=== PATIENT | female | born 1995 | race Caucasian/White ===

== ENCOUNTER 2018-02-12 21:29 | Emergency (ER) | payer MEDICAID ==
--- NOTE | 2018-02-12 22:30 | EDPHYS ---
Physician Documentation [facility] Name: Diane Chávez Age: 22 yrs Sex: Female : 1995 Arrival Date: 02/12/2018 Time: 21:30 Bed 17 Private MD: ED Physician Marin Flores HPI: 02/12 22:26 This 22 yrs old Female presents to ER via Ambulatory with complaints of jr8 Finger Infection- 31 Wks Preg. 22:26 The patient or guardian reports pain, swelling. The complaints affect the medial aspect jr8 left thumb. Context: The problem was sustained at home. Onset: The symptoms/episode began/occurred gradually, 2 day(s) ago. Modifying factors: The symptoms are alleviated by nothing, the symptoms are aggravated by nothing. Associated signs and symptoms: The patient has no apparent associated signs or symptoms. Severity of symptoms: At their worst the symptoms were mild, in the emergency department the symptoms are unchanged. The patient has not experienced similar symptoms in the past. The patient has not recently seen a physician. Patient stated that she has had wart on left thumb for some time. Had accidently opened it the other day. Now has had drainage and swelling to region . 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 - Social history:: Smoking status: Patient/guardian denies using tobacco. ROS: 22:26 ENT: Negative for injury, pain, and discharge, Neck: Negative for injury, pain, and jr8 swelling, Cardiovascular: Negative for chest pain, palpitations, and edema, Respiratory: Negative for shortness of breath, cough, wheezing, and pleuritic chest pain, Abdomen/GI: Negative for abdominal pain, nausea, vomiting, diarrhea, and constipation, Back: Negative for injury and pain, MS/Extremity: Negative for injury and deformity, Neuro: Negative for headache, weakness, numbness, tingling, and seizure. 22:26 Skin: Positive for erythema, swelling, of the medial aspect left thumb . Exam: 22:26 Cardiovascular: Regular rate and rhythm with a normal S1 and S2. No gallops, murmurs, jr8 or rubs. Normal PMI, no JVD. No pulse deficits. Respiratory: Lungs have equal breath sounds bilaterally, clear to auscultation and percussion. No rales, rhonchi or wheezes noted. No increased work of breathing, no retractions or nasal flaring. MS/ Extremity: Pulses equal, no cyanosis. Neurovascular intact. Full, normal range of motion. Neuro: Awake and alert, GCS 15, oriented to person, place, time, and situation. Cranial nerves II-XII grossly intact. Motor strength 5/5 in all extremities. Sensory grossly intact. Cerebellar exam normal. Normal gait. 22:26 Skin: small hematoma noted to medial aspect left thumb. Mild erythema surrounds region. No discharge noted . Vital Signs: 22:00 BP 118 / 69; Pulse 107; Resp 16; Temp 97.3; Pulse Ox 98% on R/A; Weight 112.94 kg; aj Height 5 ft. 5 in. (165.10 cm); Pain 8/10; 22:00 Body Mass Index 41.44 (112.94 kg, 165.10 cm) aj MDM: 22:10 Patient medically screened. jr8 22:26 Data reviewed: vital signs, nurses notes, and as a result, I will discharge patient. jr8 Data interpreted: Pulse oximetry: on room air is 98 %. Interpretation: normal. Counseling: I had a detailed discussion with the patient and/or guardian regarding: the historical points, exam findings, and any diagnostic results supporting the discharge/admit diagnosis, the need for outpatient follow up, a family practitioner, to return to the emergency department if symptoms worsen or persist or if there are any questions or concerns that arise at home. Administered Medications: No medications were administered Disposition: 23:13 Co-signature as Attending Physician, Marin Flores MD. kylie Disposition: 02/12/18 22:29 Discharged to Home. Impression: Local infection of the skin and subcutaneous tissue, unspecified. - Condition is Stable. - Discharge Instructions: Abscess, Cellulitis. - Prescriptions for Keflex 500 mg Oral Capsule - take 1 capsule by ORAL route every 8 hours for 7 days; 21 capsule. - Medication Reconciliation Form, Thank You Letter, Antibiotic Education, Prescription Opioid Use form. - Follow up: Private Physician; When: 1 week; Reason: Wound Recheck, Recheck today's complaints, Continuance of care, Re-evaluation by your physician. - Problem is new. - Symptoms have improved. Signatures: Saray Cintron, RN Marin Miller MD MD pkl Chung Gamboa PA PA jr8 Pia Pascual RN RN ak1
--- NOTE | 2018-02-12 22:30 | ER ---
Nurse's Notes [facility] Name: Diane Chávez Age: 22 yrs Sex: Female : 1995 Arrival Date: 02/12/2018 Time: 21:30 Bed 17 Private MD: Diagnosis: Local infection of the skin and subcutaneous tissue, unspecified Presentation: 02/12 21:58 Presenting complaint: Patient states: Wart to left thumb that became irritated and aj infected 2 days ago. Transition of care: patient was not received from another setting of care. Onset of symptoms was February 10, 2018. Initial Sepsis Screen: Does the patient meet any 2 criteria? No. Patient's initial sepsis screen is negative. Does the patient have a suspected source of infection? No. Patient's initial sepsis screen is negative. Care prior to arrival: None. 21:58 Method Of Arrival: Ambulatory 21:58 Acuity: JAY 5 aj Triage Assessment: 22:00 General: Appears in no apparent distress. comfortable, Behavior is calm, cooperative, aj appropriate for age. Pain: Complains of pain in palmar aspect of distal phalanx of left thumb Pain currently is 8 out of 10 on a pain scale. Neuro: Level of Consciousness is awake, alert, obeys commands, Oriented to person, place, time, situation, Appropriate for age. Respiratory: Airway is patent Respiratory effort is even, unlabored, Respiratory pattern is regular, symmetrical. Derm: Skin is intact, is healthy with good turgor, Skin is pink, warm \T\ dry. normal. Musculoskeletal: Reports pain in palmar aspect of distal phalanx of left thumb. 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 - Social history:: Smoking status: Patient/guardian denies using tobacco. Screenin:14 Abuse screen: Denies threats or abuse. Denies injuries from another. Nutritional ak1 screening: No deficits noted. Tuberculosis screening: No symptoms or risk factors identified. Fall Risk None identified. Assessment: 22:22 General: Appears in no apparent distress. Behavior is calm, cooperative. Pain: ak1 Complains of pain in palmar aspect of distal phalanx of left thumb. Neuro: No deficits noted. Cardiovascular: No deficits noted. Respiratory: No deficits noted. GI: No signs and/or symptoms were reported involving the gastrointestinal system. : No signs and/or symptoms were reported regarding the genitourinary system. EENT: No signs and/or symptoms were reported regarding the EENT system. Derm: Skin is red, Skin temperature is warm Wound noted left hand and palmar aspect of distal phalanx of left thumb Wound is swollen with scab over area. 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 pt c/o pain to area. 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 pt went to [facility] at request of pt's WIND INSTRUMENT REPAIRER. Musculoskeletal: No signs and/or symptoms reported regarding the musculoskeletal system. 22:25 Reassessment: pt WIND INSTRUMENT REPAIRER Dr. Flores in [place]. ak1 Vital Signs: 22:00 BP 118 / 69; Pulse 107; Resp 16; Temp 97.3; Pulse Ox 98% on R/A; Weight 112.94 kg; aj Height 5 ft. 5 in. (165.10 cm); Pain 8/10; 22:00 Body Mass Index 41.44 (112.94 kg, 165.10 cm) aj ED Course: 21:30 Patient arrived in ED. ds1 21:59 Triage completed. aj 22:00 Arm band placed on left wrist. Patient placed in waiting room, Patient notified of wait aj time. 22:10 Chung Gamboa PA is PHCP. jr8 22:10 Marin Flores MD is Attending Physician. jr8 22:13 Pia Pascual, RN is Primary Nurse. ak1 22:15 Patient has correct armband on for positive identification. Bed in low position. Call ak1 light in reach. 22:30 No provider procedures requiring assistance completed. Patient did not have IV access ak1 during this emergency room visit. Administered Medications: No medications were administered Outcome: 22:29 Discharge ordered by . jr8 22:31 Condition: stable ak1 22:34 Discharge instructions given to patient, Instructed on discharge instructions, follow ak1 up and referral plans. no drinking with medication, no driving heavy equipment, medication usage, Demonstrated understanding of instructions, follow-up care, medications, Prescriptions given X 1. 22:34 Discharged to home ambulatory, with family. ak1 22:34 Patient left the ED. ak1 Signatures: Saray Cintron, RN RN Aileen Asencio ds1 Chung Gamboa PA PA jr8 Pia Pascual RN RN ak1
== END 2018-02-12 22:34 | disposition home or self-care (01) ==
LOC: ER 21:29
DX: L08.9 Local infection of the skin and subcutaneous tissue, unspecified (principal); Z3A.31 31 weeks gestation of pregnancy; Z88.7 Allergy status to serum and vaccine
CPT/HCPCS: 99282

== ENCOUNTER 2021-09-20 16:32 | Emergency (ER) | payer OTHER ==
--- OUTSIDE RECORDS SUMMARY | 2021-09-20 16:40 | XMS REPORT | Continuity of Care Document ---
:1995 Author Organization [facility] t Address [address] [place] [address] Care Team Providers Name Role Phone Nesbitt, E Primary Care Physician ANDREW MI Attending Clinician Unavailable Nurse, Pob Immunization Attending Clinician Unavailable Hernán Sheehan DO Attending Clinician HERNÁN SHEEHAN Attending Clinician Unavailable Justice CARMICHAEL, T Attending Clinician Unavailable Only, Db Test Attending Clinician Unavailable Ricky LI, H Attending Clinician Natalio GARCÍA Attending Clinician Unavailable Brice CACERES Attending Clinician Unavailable DOUGLAS CARVAJAL Attending Clinician Unavailable Provider, Urgent Care Attending Clinician Unavailable Dayo CARTRIDGE LOADING OPERATOR Attending Clinician GREEN Attending Clinician Unavailable Mauricio BROWN Attending Clinician Unavailable Only, Bls Test Attending Clinician Unavailable Mely LI, A Attending Clinician Hallie STRONG Attending Clinician Unavailable JESÚS ROSA Attending Clinician Unavailable Rboerto LI, L Attending Clinician Keith TARANGO, S Attending Clinician Manuela PARKER Attending Clinician Unavailable DHRUV Attending Clinician Unavailable Nicki ROJASP, C Attending Clinician Doctor Unassigned, Name Attending Clinician Unavailable Edward BENOIT Attending Clinician Unavailable Dhruv ROTHMAN Attending Clinician Andrew Mi MD Attending Clinician Only, Test Attending Clinician Unavailable Amador LI Attending Clinician 2, Lab Attending Clinician Unavailable Jennifer LI, R Attending Clinician Ultrasound Attending Clinician Unavailable Jimi LI Attending Clinician Nicolle Roberson MD Attending Clinician Pob, Lab Main Attending Clinician Unavailable Meka LI Attending Clinician Kaycee CARTRIDGE LOADING OPERATOR, N Attending Clinician HIWOT, ANDREW Admitting Clinician Unavailable Nicolle ROBERSON Admitting Clinician Unavailable Hiwot LI, Andrew Admitting Clinician Nicolle Roberson MD Admitting Clinician Meka LI Admitting Clinician Payers Payer Name Policy Type Policy Number Effective Date Expiration Date [facility] [id number] 2019 CHOICE MEDICAID 00:00:00 MEDICAID COMM [id number] 2019 HEALTH CHOICE 00:00:00 Advance Directives Directive Decision Effective Termination Comments Source Date Date Healthcare Agents on N/A Univ ersity FileNameRelationshipHealthcare [facility] Agent Medical RelationshipCommunicationJennifer Branch [facility] [phone] (Mobile) Problems Condition Condition Condition Status Onset Resolution Last Treating Co mments Source Name Details Category Date Date Treatment Clinician Date Nexplanon Nexplanon Disease Active 2020-0 Uni vers insertion insertion 7-16 ity of 00:00: [place] 00 Medical Branch Morbid Morbid Disease Active 2020-0 Univers obesity obesity 7-03 ity of 00:00: [place] [address] Medical Branch Other Other Disease Active 2020-0 Univers general general 7-03 [place] of counseling [place] and advice and advice 00 Wy dical for for Branch contracept contracept seda seda management management 39 weeks 39 weeks Disease Active 2020-0 Unive rs gestation gestation 5-19 ity of of of 00:00: [place] 00 [facility] Branch 24 weeks 24 weeks Disease Active 2020-0 Unive rs gestation gestation 2-08 ity of of of 00:00: [place] 00 Medi tamera Branch Flank pain Flank pain Disease Active U nivers 2-08 ity of 00:00: [place] 00 [facility] 20 weeks 20 weeks Disease Active Unive rs gestation gestation 1-09 ity of of of 00:00: [place] 00 [facility] 22 weeks 22 weeks Disease Active Unive rs gestation gestation 1-09 ity of of of 00:00: [place] 00 [facility] Pregestati Pregestati Disease Active Overview : Univers onal onal 07-16 Dx at 5 ity of diabetes diabetes 00:00: weeks [place] mellitus, mellitus, 00 [facility] modified modified [place] White White class B class B GDM GDM Disease Active Overview: Univer s (gestation (gestation 07-16 Dx at 5 i ty of al al 00:00: weeks [place] diabetes diabetes 00 Medica l mellitus), mellitus), Br anch class A1 class A1 Abnormal Abnormal Disease Active Unive rs maternal maternal 07-11 ity of glucose glucose 00:00: [place] tolerance, tolerance, 00 Me dical antepartum antepartum Br anch Multiparit Multiparit Disease Active U nivers y y 07-10 ity of 00:00: [address] Hx of Hx of Disease Active Univers 07-10 ity of section section 00:00: [place] complicati complicati 00 Me dical ng ng Branch Obesity Obesity Disease Active Univers affecting affecting - [place] 00[place] first 00 Medica l trimester trimester Bran ch Abnormal Abnormal Disease Active Unive rs urinalysis urinalysis 07-10 it y of 00:00: [address] Branch High risk High risk Disease Active Uni vers , , 07-10 it y of antepartum antepartum 00:[place] [facility] Branch BMI BMI Disease Active Univers 40.0-44.9, 40.0-44.9, - it y of adult adult 00:00: [place] 00 [facility] Branch Depression Depression Disease Active U nivers , , - ity of unspecifie unspecifie 00:[place] d d 00 Medical depression depression Br anch type type Liveborn Liveborn Disease Active 2018-0 Unive rs infant, of infant, of 6-21 it y of chaves chaves 00[place] , , 00 Me dical born in born in [facility] hospital by by delivery delivery Allergies, Adverse Reactions, Alerts Allergy Allergy Status Severity Reaction(s) Onset Inactive Treating Comm ents Source Name Type Date Date Clinician TETANUS DRUG Active Hives Univers AND INGREDI 3-22 ity of DIPHTHER 00:00: [place] 00 Medical TOXOIDS Topping Tetanus Propensi Active Hives Univers And ty to 3-22 ity of Diphther adverse 00:00: [place] ia reaction 00 Medical Toxoids s Branch Social History Social Habit Start Date Stop Date Quantity Comments Source ASSERTION 2019-06-24 [facility] 00:00:00 [facility] Exposure to Not sure [facility] SARS-CoV-2 (event) Medica l To[place] Alcohol intake 2021-02-25 2021-02-25 0 /d [facility] 00:00:00 00:00:00 [facility] Tobacco use and 2013-07-16 2013-07-16 Never used [facility] exposure 00:00:00 00:00:00 [facility] Sex [birth year] At [birth year] [facility] 00:00:00 00:00:00 [facility] Smoking Status Start Date Stop Date Source Never smoker [facility] Medications Ordered Filled Start Stop Current Ordering Indication Dosage Frequency Signature Comments Components Source Medication Medication Date Date Medication? Clinician (SIG) Name Name AMANDA BANSAL Yes [id number] 1{tbl} Take 1 Univers 1 mg-20 mcg 5-07 tablet by ity of (21)/75 mg 00:00: mouth [place] (7) tablet 00 daily. [facility] ANNMARIEIN Yes [id number] 1{tbl} Take 1 Univers 1 mg-20 mcg 5-07 tablet by ity of (21)/75 mg 00:00: mouth [place] (7) tablet 00 daily. [facility] LOLEONIDASIN Yes [id number] 1{tbl} Take 1 Univers 1 mg-20 mcg 5-07 tablet by ity of (21)/75 mg 00:00: mouth [place] (7) tablet 00 daily. [facility] AMANDA Yes [id number] 1{tbl} Take 1 Univers 1 mg-20 mcg 5-07 tablet by ity of (21)/75 mg 00:00: mouth [place] (7) tablet 00 daily. Medical Branch etonogestre 2020-0 2020- No 68mg Unive rs l 05-06-16 ity of (NEXPLANON) 21:30: 20:29 [place] implant 68 00 :00 Medical mg Branch etonogestre 2020-0 2020- No 68mg 68 mg, Uni vers l 05-06-16 Subdermal, ity of (NEXPLANON) 21:30: 20:29 ONCE NOW, [place] implant 68 00 :00 1 dose, Medica l mg Zaina Branch 05/06/20 at 1630, Routine
Use approved by: LICENSED WEIGHER etonogestre 2020-0 2020- No 68mg Unive rs l 05-06-16 ity of (NEXPLANON) 21:30: 20:29 [place] implant 68 00 :00 Medical mg Branch etonogestre 2020-0 2020- No 68mg 68 mg, Uni vers l 05-06-16 Subdermal, ity of (NEXPLANON) 21:30: 20:29 ONCE NOW, [place] implant 68 00 :00 1 dose, Medica l mg Zaina [place] 05/06/20 at 1630, Routine
Use approved by: LICENSED WEIGHER escitalopra 2020-0 Yes 5mg Take 5 mg U nivers m oxalate 7-03 by mouth ity of (LEXAPRO) 5 14:13: [place]. [place] mg tablet 28 Medical Branch escitalopra 2020-0 Yes 5mg Take 5 mg U nivers m oxalate 7-03 by mouth ity of (LEXAPRO) 5 14:13: daily. [place] mg tablet 28 Medical Branch escitalopra 2020-0 Yes 5mg Take 5 mg U nivers m oxalate 7-03 by mouth ity of (LEXAPRO) 5 14:13: daily. [place] mg tablet 28 Medical Branch escitalopra 2020-0 Yes 5mg Take 5 mg U nivers m oxalate 7-03 by mouth ity of (LEXAPRO) 5 14:13: daily. [place] mg tablet 28 Medical Branch escitalopra 2020-0 Yes 5mg Take 5 mg U nivers m oxalate 7-03 by mouth ity of (LEXAPRO) 5 14:13: daily. [place] mg tablet 28 Medical Branch escitalopra 2020-0 Yes 5mg Take 5 mg U nivers m oxalate 7-03 by mouth ity of (LEXAPRO) 5 14:13: daily. [place] mg tablet 28 Medical Branch escitalopra 2020-0 Yes 5mg Take 5 mg U nivers m oxalate 7-03 by mouth ity of (LEXAPRO) 5 14:13: daily. [place] mg tablet 28 Medical Branch escitalopra 2020-0 Yes 5mg Take 5 mg U nivers m oxalate 7-03 by mouth ity of (LEXAPRO) 5 14:13: daily. [place] mg tablet 28 Medical Branch escitalopra 2020-0 Yes 5mg Take 5 mg U nivers m oxalate 7-03 by mouth ity of (LEXAPRO) 5 14:13: daily. [place] mg tablet 28 Medical Branch escitalopra 2020-0 Yes 5mg Take 5 mg U nivers m oxalate 7-03 by mouth ity of (LEXAPRO) 5 14:13: daily. [place] mg tablet 28 Medical Branch escitalopra 2020-0 Yes 5mg Take 5 mg U nivers m oxalate 7-03 by mouth ity of (LEXAPRO) 5 14:13: daily. [place] mg tablet 28 Medical Branch escitalopra 2020-0 Yes 5mg Take 5 mg U nivers m oxalate 7-03 by mouth ity of (LEXAPRO) 5 14:13: daily. [place] mg tablet 28 Medical [place] escitalopra 2020-0 Yes 5mg Take 5 mg U nivers m oxalate 7-03 by mouth ity of (LEXAPRO) 5 14:13: daily. [place] mg tablet 28 Medical Branch escitalopra 2020-0 Yes 5mg Take 5 mg U nivers m oxalate 7-03 by mouth ity of (LEXAPRO) 5 14:13: daily. [place] mg tablet 28 Medical Branch escitalopra 2020-0 Yes 5mg Take 5 mg U nivers m oxalate 7-03 by mouth ity of (LEXAPRO) 5 14:13: daily. [place] mg tablet 28 Medical Branch escitalopra 2020-0 Yes 5mg Take 5 mg U nivers m oxalate 7-03 by mouth ity of (LEXAPRO) 5 09:13: daily. [place] mg tablet 28 [facility] SERTraline 2020-0 Yes [id number] 100mg Take 1 Univers (ZOLOFT) 5-29 tablet by ity of 100 mg 00:00: mouth [place] tablet 00 daily. [facility] Branch SERTraline 2020-0 Yes [id number] 100mg Take 1 Univers (ZOLOFT) 5-29 tablet by ity of 100 mg 00:00: mouth [place] tablet 00 daily. [facility] Branch SERTraline 2020-0 Yes [id number] 100mg Take 1 Univers (ZOLOFT) 5-29 tablet by ity of 100 mg 00:00: mouth [place] tablet 00 daily. [facility] Branch SERTraline 2019-0 Yes [id number] 100mg Take 1 Univers (ZOLOFT) 5-29 tablet by ity of 100 mg 00:00: mouth [place] tablet 00 daily. [facility] Branch SERTraline 2019-0 Yes [id number] 100mg Take 1 Univers (ZOLOFT) 5-29 tablet by ity of 100 mg 00:00: mouth [place] tablet 00 daily. [facility] Branch SERTraline 2019-0 Yes [id number] 100mg Take 1 Univers (ZOLOFT) 5-29 tablet by ity of 100 mg 00:00: mouth [place] tablet 00 daily. [facility] Branch SERTraline 2019-0 Yes [id number] 100mg Take 1 Univers (ZOLOFT) 5-29 tablet by ity of 100 mg 00:00: mouth [place] tablet 00 daily. [facility] SERTraline 2019-0 Yes [id number] 100mg Take 1 Univers (ZOLOFT) 5-29 tablet by ity of 100 mg 00:00: mouth [place] tablet 00 daily. [facility] SERTraline 2020-0 Yes [id number] 100mg Take 1 Univers (ZOLOFT) 5-29 tablet by ity of 100 mg 00:00: mouth [place] tablet 00 daily. [facility] Branch SERTraline 2020-0 Yes [id number] 100mg Take 1 Univers (ZOLOFT) 5-29 tablet by ity of 100 mg 00:00: mouth [place] tablet 00 daily. [facility] SERTraline 2020-0 Yes [id number] 100mg Take 1 Univers (ZOLOFT) 5-29 tablet by ity of 100 mg 00:00: mouth [place] tablet 00 daily. [facility] SERTraline 2020-0 Yes [id number] 100mg Take 1 Univers (ZOLOFT) 5-29 tablet by ity of 100 mg 00:00: mouth [place] tablet 00 daily. [facility] SERTraline 2020-0 Yes [id number] 100mg Take 1 Univers (ZOLOFT) 5-29 tablet by ity of 100 mg 00:00: mouth [place] tablet 00 daily. [facility] SERTraline 2020-0 Yes [id number] 100mg Take 1 Univers (ZOLOFT) 5-29 tablet by ity of 100 mg 00:00: mouth [place] tablet 00 daily. [facility] SERTraline 2020-0 Yes [id number] 100mg Take 1 Univers (ZOLOFT) 5-29 tablet by ity of 100 mg 00:00: mouth [place] tablet 00 daily. [facility] SERTraline 2020-0 Yes [id number] 100mg Take 1 Univers (ZOLOFT) 5-29 tablet by ity of 100 mg 00:00: mouth [place] tablet 00 daily. [facility] SERTraline 2020-0 Yes [id number] 100mg Take 1 Univers (ZOLOFT) 5-29 tablet by ity of 100 mg 00:00: mouth [place] tablet 00 daily. [facility] SERTraline 2019-0 Yes [id number] 100mg Take 1 Univers (ZOLOFT) 5-29 tablet by ity of 100 mg 00:00: mouth [place] tablet 00 daily. [facility] ibuprofen 2019-0 Yes 600mg 600 mg, Univ ers (IBU) 5-21 Oral, Q6H ity of tablet 600 01:00: ABX, First [place] mg 00 dose on [facility] 03/10/20 at 2000, Until Discontinu ed, Routine acetaminoph 2019-0 Yes 650mg 650 mg, Un hernan en 5-20 Oral, Q6H, ity of (TYLENOL) 17:00: First [place] tablet 650 00 on [facility] Medical mg 03/10/20 at Branch 1200, Until Discontinu ed, Routine medroxyPROG 2019-0 2020- No 150mg 150 mg, U nivers ESTERone 5-20 05-20 Intramuscu ity of (DEPO-PROVE 14:30: 20:04 lar, ONCE, Jolly RA) 00 :00 1 dose, Medical injection [facility] 150 mg 03/10/20 at 0930, Routine 2020-0 2020- No Take by [facility] ers vit 5-20 05-20 mouth. ity of calc,iron,f 12:53: 00:00 [place] olic 35 :00 Medical ( Branch VITAMIN ORAL) 2020- No Take by [facility] ers vit 5-20 05-20 mouth. ity of calc,iron,f 12:53: 00:00 [place] olic 35 :00 Medical ( Branch VITAMIN ORAL) HYDROcodone 2019-0 Yes 1{tbl} 1 tablet, Univers -acetaminop 5-20 Oral, ity of hen (NORCO 12:42: Q6HPRN, [place] 5) 5-325 mg 48 Starting Medi tamera tablet 1 [place] Branch tablet 03/10/20 at 0742, Until Discontinu ed, Routine, Pain (scale 7-10) acetaminoph 2020- No 650mg 650 mg, U nivers en 03-10-20 Oral, Q6H, ity of (TYLENOL) 02:00: 07:29 2 doses, [place] tablet 650 00 :00 First dose Med ical mg on [place] Branch 03/09/20 at 2100, Last dose on Sun03/10/20 at 0000, Routine ketorolac 2019- No 30mg 30 mg, [facility] rs (TORADOL) 03-10 Slow IV ity of injection 01:00: 00:59 [place], Q6H [place] 30 mg 00 :00 ABX, 4 Medical doses, Branch First dose on Sun03/09/20 at 2000, Last dose on Sun03/10/20 at 1400, Routine
landscape crew member approving Restricted medication : OBYADC docusate 2019-0 Yes [id number] 240mg Take 1 Un hernan calcium 240 5-20 capsule by it y of mg capsule 00:00: mouth [place] 00 daily as Medical needed for Branch Constipati on. ferrous 2019-0 Yes [id number] 325mg Take 1 Uni vers sulfate 325 5-20 tablet by ity of mg (65 mg 00:00: mouth 2 [place] iron) 00 (two) Medical tablet times Branch daily. ibuprofen 2019-0 Yes [id number] 600mg Take 1 U nivers 600 mg 5-20 tablet by ity of tablet 00:00: mouth [place] 00 every 6 Medical (six) Branch hours as needed (Pain). Take with food or milk. acetaminoph 2020-0 Yes [id number] 650mg Take 2 Univers en 325 mg 5-20 tablets by ity of tablet 00:00: mouth [place] 00 every 6 Medical (six) Branch hours as needed for Pain (scale 1-3) or Pain (scale 4-6). 2020-0 Yes [id number] 1{tbl} Take 1 U nivers vitamin 5-20 tablet by ity of w/FA tablet 00:00: mouth [place] 00 daily. Medical Branch docusate 2020-0 Yes [id number] 240mg Take 1 Un hernan calcium 240 5-20 capsule by it y of mg capsule 00:00: mouth [place] 00 daily as Medical needed for Branch Constipati on. ferrous 2020-0 Yes [id number] 325mg Take 1 Uni vers sulfate 325 5-20 tablet by ity of mg (65 mg 00:00: mouth 2 [place] iron) 00 (two) Medical tablet times Branch daily. ibuprofen 2020-0 Yes [id number] 600mg Take 1 U nivers 600 mg 5-20 tablet by ity of tablet 00:00: mouth [place] 00 every 6 Medical (six) Branch hours as needed (Pain). Take with food or milk. acetaminoph 2020-0 Yes [id number] 650mg Take 2 Univers en 325 mg 5-20 tablets by ity of tablet 00:00: mouth [place] 00 every 6 Medical (six) Branch hours as needed for Pain (scale 1-3) or Pain (scale 4-6). 2020-0 Yes [id number] 1{tbl} Take 1 U nivers vitamin 5-20 tablet by ity of w/FA tablet 00:00: mouth [place] 00 daily. Medical Branch docusate 2020-0 Yes [id number] 240mg Take 1 Un hernan calcium 240 5-20 capsule by it y of mg capsule 00:00: mouth [place] 00 daily as Medical needed for Branch Constipati on. ferrous 2020-0 Yes [id number] 325mg Take 1 Uni vers sulfate 325 5-20 tablet by ity of mg (65 mg 00:00: mouth 2 [place] iron) 00 (two) Medical tablet times Branch daily. ibuprofen 2020-0 Yes [id number] 600mg Take 1 U nivers 600 mg 5-20 tablet by ity of tablet 00:00: mouth [place] 00 every 6 Medical (six) Branch hours as needed (Pain). Take with food or milk. acetaminoph 2020-0 Yes [id number] 650mg Take 2 Univers en 325 mg 5-20 tablets by ity of tablet 00:00: mouth [place] 00 every 6 Medical (six) Branch hours as needed for Pain (scale 1-3) or Pain (scale 4-6). 2020-0 Yes [id number] 1{tbl} Take 1 U nivers vitamin 5-20 tablet by ity of w/FA tablet 00:00: mouth [place] 00 daily. Medical Branch docusate 2020-0 Yes [id number] 240mg Take 1 Un hernan calcium 240 5-20 capsule by it y of mg capsule 00:00: mouth [place] 00 daily as Medical needed for Branch Constipati on. ferrous 2020-0 Yes [id number] 325mg Take 1 Uni vers sulfate 325 5-20 tablet by ity of mg (65 mg 00:00: mouth 2 [place] iron) 00 (two) Medical tablet times Branch daily. ibuprofen 2020-0 Yes [id number] 600mg Take 1 U nivers 600 mg 5-20 tablet by ity of tablet 00:00: mouth [place] 00 every 6 Medical (six) Branch hours as needed (Pain). Take with food or milk. acetaminoph 2020-0 Yes [id number] 650mg Take 2 Univers en 325 mg 5-20 tablets by ity of tablet 00:00: mouth [place] 00 every 6 Medical (six) Branch hours as needed for Pain (scale 1-3) or Pain (scale 4-6). 2020-0 Yes [id number] 1{tbl} Take 1 U nivers vitamin 5-20 tablet by ity of w/FA tablet 00:00: mouth [place] 00 daily. Medical Branch docusate 2020-0 Yes [id number] 240mg Take 1 Un hernan calcium 240 5-20 capsule by it y of mg capsule 00:00: mouth once [place] 00 daily as Medical needed for Branch Constipati on. ferrous 2020-0 Yes [id number] 325mg Take 1 Uni vers sulfate 325 5-20 tablet by ity of mg (65 mg 00:00: mouth 2 [place] iron) 00 (two) Medical tablet times Branch daily. ibuprofen 2020-0 Yes [id number] 600mg Take 1 U nivers 600 mg 5-20 tablet by ity of tablet 00:00: mouth [place] 00 every 6 Medical (six) Branch hours as needed (Pain). Take with food or milk. acetaminoph 2020-0 Yes [id number] 650mg Take 2 Univers en 325 mg 5-20 tablets by ity of tablet 00:00: mouth [place] 00 every 6 Medical (six) Branch hours as needed for Pain (scale 1-3) or Pain (scale 4-6). 2020-0 Yes [id number] 1{tbl} Take 1 U nivers vitamin 5-20 tablet by ity of w/FA tablet 00:00: mouth [place] 00 daily. Medical Branch docusate 2020-0 Yes [id number] 240mg Take 1 Un hernan calcium 240 5-20 capsule by it y of mg capsule 00:00: mouth once [place] 00 daily as Medical needed for Branch Constipati on. ferrous 2020-0 Yes [id number] 325mg Take 1 Uni vers sulfate 325 5-20 tablet by ity of mg (65 mg 00:00: mouth 2 [place] iron) 00 (two) Medical tablet times Branch daily. ibuprofen 2020-0 Yes [id number] 600mg Take 1 U nivers 600 mg 5-20 tablet by ity of tablet 00:00: mouth [place] 00 every 6 Medical (six) Branch hours as needed (Pain). Take with food or milk. acetaminoph 2020-0 Yes [id number] 650mg Take 2 Univers en 325 mg 5-20 tablets by ity of tablet 00:00: mouth [place] 00 every 6 Medical (six) Branch hours as needed for Pain (scale 1-3) or Pain (scale 4-6). 2020-0 Yes [id number] 1{tbl} Take 1 U nivers vitamin 5-20 tablet by ity of w/FA tablet 00:00: mouth [place] 00 daily. Medical Branch acetaminoph 2020-0 Yes [id number] 650mg Take 2 Univers en 325 mg 5-20 tablets by ity of tablet 00:00: mouth [place] 00 every 6 Medical (six) Branch hours as needed for Pain (scale 1-3) or Pain (scale 4-6). 2020-0 Yes [id number] 1{tbl} Take 1 U nivers vitamin 5-20 tablet by ity of w/FA tablet 00:00: mouth [place] 00 daily. Medical Branch docusate 2020-0 Yes [id number] 240mg Take 1 Un hernan calcium 240 5-20 capsule by it y of mg capsule 00:00: mouth once [place] 00 daily as Medical needed for Branch Constipati on. ferrous 2020-0 Yes [id number] 325mg Take 1 Uni vers sulfate 325 5-20 tablet by ity of mg (65 mg 00:00: mouth 2 [place] iron) 00 (two) Medical tablet times Branch daily. docusate 2020-0 Yes [id number] 240mg Take 1 Un hernan calcium 240 5-20 capsule by it y of mg capsule 00:00: mouth once [place] 00 daily as Medical needed for Branch Constipati on. ibuprofen 2020-0 Yes [id number] 600mg Take 1 U nivers 600 mg 5-20 tablet by ity of tablet 00:00: mouth [place] 00 every 6 Medical (six) Branch hours as needed (Pain). Take with food or milk. ferrous 2020-0 Yes [id number] 325mg Take 1 Uni vers sulfate 325 5-20 tablet by ity of mg (65 mg 00:00: mouth 2 [place] iron) 00 (two) Medical tablet times Branch daily. ibuprofen 2020-0 Yes [id number] 600mg Take 1 U nivers 600 mg 5-20 tablet by ity of tablet 00:00: mouth [place] 00 every 6 Medical (six) Branch hours as needed (Pain). Take with food or milk. acetaminoph 2020-0 Yes [id number] 650mg Take 2 Univers en 325 mg 5-20 tablets by ity of tablet 00:00: mouth [place] 00 every 6 Medical (six) Branch hours as needed for Pain (scale 1-3) or Pain (scale 4-6). 2020-0 Yes [id number] 1{tbl} Take 1 U nivers vitamin 5-20 tablet by ity of w/FA tablet 00:00: mouth [place] 00 daily. Medical Branch docusate 2020-0 Yes [id number] 240mg Take 1 Un hernan calcium 240 5-20 capsule by it y of mg capsule 00:00: mouth once [place] 00 daily as Medical needed for Branch Constipati on. ferrous 2020-0 Yes [id number] 325mg Take 1 Uni vers sulfate 325 5-20 tablet by ity of mg (65 mg 00:00: mouth 2 [place] iron) 00 (two) Medical tablet times Branch daily. ibuprofen 2020-0 Yes [id number] 600mg Take 1 U nivers 600 mg 5-20 tablet by ity of tablet 00:00: mouth [place] 00 every 6 Medical (six) Branch hours as needed (Pain). Take with food or milk. acetaminoph 2020-0 Yes [id number] 650mg Take 2 Univers en 325 mg 5-20 tablets by ity of tablet 00:00: mouth [place] 00 every 6 Medical (six) Branch hours as needed for Pain (scale 1-3) or Pain (scale 4-6). 2020-0 Yes [id number] 1{tbl} Take 1 U nivers vitamin 5-20 tablet by ity of w/FA tablet 00:00: mouth [place] 00 daily. Medical Branch docusate 2020-0 Yes [id number] 240mg Take 1 Un hernan calcium 240 5-20 capsule by it y of mg capsule 00:00: mouth once [place] 00 daily as Medical needed for Branch Constipati on. ferrous 2020-0 Yes [id number] 325mg Take 1 Uni vers sulfate 325 5-20 tablet by ity of mg (65 mg 00:00: mouth 2 [place] iron) 00 (two) Medical tablet times Branch daily. ibuprofen 2020-0 Yes [id number] 600mg Take 1 U nivers 600 mg 5-20 tablet by ity of tablet 00:00: mouth [place] 00 every 6 Medical (six) Branch hours as needed (Pain). Take with food or milk. acetaminoph 2020-0 Yes [id number] 650mg Take 2 Univers en 325 mg 5-20 tablets by ity of tablet 00:00: mouth [place] 00 every 6 Medical (six) Branch hours as needed for Pain (scale 1-3) or Pain (scale 4-6). 2020-0 Yes [id number] 1{tbl} Take 1 U nivers vitamin 5-20 tablet by ity of w/FA tablet 00:00: mouth [place] 00 daily. Medical Branch docusate 2020-0 Yes [id number] 240mg Take 1 Un hernan calcium 240 5-20 capsule by it y of mg capsule 00:00: mouth once [place] 00 daily as Medical needed for Branch Constipati on. ferrous 2020-0 Yes [id number] 325mg Take 1 Uni vers sulfate 325 5-20 tablet by ity of mg (65 mg 00:00: mouth 2 [place] iron) 00 (two) Medical tablet times Branch daily. ibuprofen 2020-0 Yes [id number] 600mg Take 1 U nivers 600 mg 5-20 tablet by ity of tablet 00:00: mouth [place] 00 every 6 Medical (six) Branch hours as needed (Pain). Take with food or milk. acetaminoph 2020-0 Yes [id number] 650mg Take 2 [facility] en 325 mg 5-20 tablets by ity of tablet 00:00: mouth [place] 00 every 6 Medical (six) Branch hours as needed for Pain (scale 1-3) or Pain (scale 4-6). 2020-0 Yes [id number] 1{tbl} Take 1 U nivers vitamin 5-20 tablet by ity of w/FA tablet 00:00: mouth [place] 00 daily. Medical Branch docusate 2020-0 Yes [id number] 240mg Take 1 [facility]nan calcium 240 5-20 capsule by it y of mg capsule 00:00: mouth once [place] 00 daily as Medical needed for Branch Constipati on. ferrous 2020-0 Yes [id number] 325mg Take 1 [facility] vers sulfate 325 5-20 tablet by ity of mg (65 mg 00:00: mouth 2 [place] iron) 00 (two) Medical tablet times Branch daily. ibuprofen 2020-0 Yes [id number] 600mg Take 1 U nivers 600 mg 5-20 tablet by ity of tablet 00:00: mouth [place] 00 every 6 Medical (six) Branch hours as needed (Pain). Take with food or milk. acetaminoph 2020-0 Yes [id number] 650mg Take 2 [facility] en 325 mg 5-20 tablets by ity of tablet 00:00: mouth [place] 00 every 6 Medical (six) Branch hours as needed for Pain (scale 1-3) or Pain (scale 4-6). 2020-0 Yes [id number] 1{tbl} Take 1 [facility] nivers vitamin 5-20 tablet by ity of w/FA tablet 00:00: mouth [place] 00 daily. Medical Branch docusate 2020-0 Yes [id number] 240mg Take 1 [facility] her[facility] calcium 240 5-20 capsule by it y of mg capsule 00:00: mouth once [place] 00 daily as Medical needed for Branch Constipati on. ferrous 2020-0 Yes [id number] 325mg Take 1 [facility] vers sulfate 325 5-20 tablet by ity of mg (65 mg 00:00: mouth 2 [place] iron) 00 (two) Medical tablet times Branch daily. ibuprofen 2020-0 Yes [id number] 600mg Take 1 [facility] nivers 600 mg 5-20 tablet by ity of tablet 00:00: mouth [place] 00 every 6 Medical (six) Branch hours as needed (Pain). Take with food or milk. acetaminoph 2020-0 Yes [id number] 650mg Take 2 [facility] en 325 mg 5-20 tablets by ity of tablet 00:00: mouth [place] 00 every 6 Medical (six) Branch hours as needed for Pain (scale 1-3) or Pain (scale 4-6). 2020-0 Yes [id number] 1{tbl} Take 1 [facility] nivers vitamin 5-20 tablet by ity of w/FA tablet 00:00: mouth [place] 00 daily. Medical Branch docusate 2020-0 Yes [id number] 240mg Take 1 [facility] her[facility] calcium 240 5-20 capsule by it y of mg capsule 00:00: mouth once [place] 00 daily as Medical needed for Branch Constipati on. ferrous 2020-0 Yes [id number] 325mg Take 1 [facility] vers sulfate 325 5-20 tablet by ity of mg (65 mg 00:00: mouth 2 [place] iron) 00 (two) Medical tablet times Branch daily. ibuprofen 2020-0 Yes [id number] 600mg Take 1 [facility] nivers 600 mg 5-20 tablet by ity of tablet 00:00: mouth [place] 00 every 6 Medical (six) Branch hours as needed (Pain). Take with food or milk. acetaminoph 2020-0 Yes [id number] 650mg Take 2 [facility] en 325 mg 5-20 tablets by ity of tablet 00:00: mouth [place] 00 every 6 Medical (six) Branch hours as needed for Pain (scale 1-3) or Pain (scale 4-6). 2020-0 Yes [id number] 1{tbl} Take 1 [facility] nivers vitamin 5-20 tablet by ity of w/FA tablet 00:00: mouth [place] 00 daily. Medical Branch docusate 2020-0 Yes [id number] 240mg Take 1 [facility] hernan calcium 240 5-20 capsule by it y of mg capsule 00:00: mouth once [place] 00 daily as Medical needed for Branch Constipati on. ferrous 2020-0 Yes [id number] 325mg Take 1 [facility] vers sulfate 325 5-20 tablet by ity of mg (65 mg 00:00: mouth 2 [place] iron) 00 (two) Medical tablet times Branch daily. ibuprofen 2020-0 Yes [id number] 600mg Take 1 [facility] nivers 600 mg 5-20 tablet by ity of tablet 00:00: mouth [place] 00 every 6 Medical (six) Branch hours as needed (Pain). Take with food or milk. acetaminoph 2020-0 Yes [id number] 650mg Take 2 [facility] en 325 mg 5-20 tablets by ity of tablet 00:00: mouth [place] 00 every 6 Medical (six) Branch hours as needed for Pain (scale 1-3) or Pain (scale 4-6). 2020-0 Yes [id number] 1{tbl} Take 1 [facility] nivers vitamin 5-20 tablet by ity of w/FA tablet 00:00: mouth [place] 00 daily. Medical Branch docusate 2020-0 Yes [id number] 240mg Take 1 [facility] hernan calcium 240 5-20 capsule by it y of mg capsule 00:00: mouth once [place] 00 daily as Medical needed for Branch Constipati on. ferrous 2020-0 Yes [id number] 325mg Take 1 [facility] vers sulfate 325 5-20 tablet by ity of mg (65 mg 00:00: mouth 2 [place] iron) 00 (two) Medical tablet times Branch daily. ibuprofen 2020-0 Yes [id number] 600mg Take 1 [facility] nivers 600 mg 5-20 tablet by ity of tablet 00:00: mouth [place] 00 every 6 Medical (six) Branch hours as needed (Pain). Take with food or milk. acetaminoph 2020-0 Yes [id number] 650mg Take 2 [facility] en 325 mg 5-20 tablets by ity of tablet 00:00: mouth [place] 00 every 6 Medical (six) Branch hours as needed for Pain (scale 1-3) or Pain (scale 4-6). 2020-0 Yes [id number] 1{tbl} Take 1 [facility] nivers vitamin 5-20 tablet by ity of w/FA tablet 00:00: mouth [place] 00 daily. Medical Branch docusate 2020-0 Yes [id number] 240mg Take 1 [facility] hernan calcium 240 5-20 capsule by it y of mg capsule 00:00: mouth once [place] 00 daily as Medical needed for Branch Constipati on. ferrous 2020-0 Yes [id number] 325mg Take 1 [facility] vers sulfate 325 5-20 tablet by ity of mg (65 mg 00:00: mouth 2 [place] iron) 00 (two) Medical tablet times Branch daily. ibuprofen 2020-0 Yes [id number] 600mg Take 1 [facility] nivers 600 mg 5-20 tablet by ity of tablet 00:00: mouth [place] 00 every 6 Medical (six) Branch hours as needed (Pain). Take with food or milk. acetaminoph 2020-0 Yes [id number] 650mg Take 2 [facility] en 325 mg 5-20 tablets by ity of tablet 00:00: mouth [place] 00 every 6 Medical (six) Branch hours as needed for Pain (scale 1-3) or Pain (scale 4-6). 2020-0 Yes [id number] 1{tbl} Take 1 U nivers vitamin 5-20 tablet by ity of w/FA tablet 00:00: mouth [place] 00 daily. Medical Branch docusate 2020-0 Yes [id number] 240mg Take 1 [facility] hernan calcium 240 5-20 capsule by it y of mg capsule 00:00: mouth once [place] 00 daily as Medical needed for Branch Constipati on. ferrous 2020-0 Yes [id number] 325mg Take 1 [facility] vers sulfate 325 5-20 tablet by ity of mg (65 mg 00:00: mouth 2 [place] iron) 00 (two) Medical tablet times Branch daily. ibuprofen 2020-0 Yes [id number] 600mg Take 1 [facility] nivers 600 mg 5-20 tablet by ity of tablet 00:00: mouth [place] 00 every 6 Medical (six) Branch hours as needed (Pain). Take with food or milk. acetaminoph 2020-0 Yes [id number] 650mg Take 2 [facility] en 325 mg 5-20 tablets by ity of tablet 00:00: mouth [place] 00 every 6 Medical (six) Branch hours as needed for Pain (scale 1-3) or Pain (scale 4-6). 2020-0 Yes [id number] 1{tbl} Take 1 U nivers vitamin 5-20 tablet by ity of w/FA tablet 00:00: mouth [place] 00 daily. Medical Branch docusate 2020-0 Yes [id number] 240mg Take 1 [facility] hernan calcium 240 5-20 capsule by it y of mg capsule 00:00: mouth once [place] 00 daily as Medical needed for Branch Constipati on. ferrous 2020-0 Yes [id number] 325mg Take 1 Uni vers sulfate 325 5-20 tablet by ity of mg (65 mg 00:00: mouth 2 [place] iron) 00 (two) Medical tablet times Branch daily. ibuprofen 2020-0 Yes [id number] 600mg Take 1 U nivers 600 mg 5-20 tablet by ity of tablet 00:00: mouth [place] 00 every 6 Medical (six) Branch hours as needed (Pain). Take with food or milk. acetaminoph 2020-0 Yes [id number] 650mg Take 2 [facility] en 325 mg 5-20 tablets by ity of tablet 00:00: mouth [place] 00 every 6 Medical (six) Branch hours as needed for Pain (scale 1-3) or Pain (scale 4-6). 2020-0 Yes [id number] 1{tbl} Take 1 U nivers vitamin 5-20 tablet by ity of w/FA tablet 00:00: mouth [place] 00 daily. Medical Branch docusate 2020-0 Yes [id number] 240mg Take 1 Un hern[facility] calcium 240 5-20 capsule by it y of mg capsule 00:00: mouth once [place] 00 daily as Medical needed for Branch Constipati on. ferrous 2020-0 Yes [id number] 325mg Take 1 Uni vers sulfate 325 5-20 tablet by ity of mg (65 mg 00:00: mouth 2 [place] iron) 00 (two) Medical tablet times Branch daily. ibuprofen 2020-0 Yes [id number] 600mg Take 1 U nivers 600 mg 5-20 tablet by ity of tablet 00:00: mouth [place] 00 every 6 Medical (six) Branch hours as needed (Pain). Take with food or milk. acetaminoph 2020-0 Yes [id number] 650mg Take 2 [facility] en 325 mg 5-20 tablets by ity of tablet 00:00: mouth [place] 00 every 6 Medical (six) Branch hours as needed for Pain (scale 1-3) or Pain (scale 4-6). 2020-0 Yes [id number] 1{tbl} Take 1 U nivers vitamin 5-20 tablet by ity of w/FA tablet 00:00: mouth [place] 00 daily. Medical Branch docusate 2020-0 Yes [id number] 240mg Take 1 Un hernan calcium 240 5-20 capsule by it y of mg capsule 00:00: mouth once [place] 00 daily as Medical needed for Branch Constipati on. ferrous 2020-0 Yes [id number] 325mg Take 1 Uni vers sulfate 325 5-20 tablet by ity of mg (65 mg 00:00: mouth 2 [place] iron) 00 (two) Medical tablet times Branch daily. ibuprofen 2020-0 Yes [id number] 600mg Take 1 U nivers 600 mg 5-20 tablet by ity of tablet 00:00: mouth [place] 00 every 6 Medical (six) Branch hours as needed (Pain). Take with food or milk. acetaminoph 2020-0 Yes [id number] 650mg Take 2 [facility] en 325 mg 5-20 tablets by ity of tablet 00:00: mouth [place] 00 every 6 Medical (six) Branch hours as needed for Pain (scale 1-3) or Pain (scale 4-6). 2020-0 Yes [id number] 1{tbl} Take 1 U nivers vitamin 5-20 tablet by ity of w/FA tablet 00:00: mouth [place] 00 daily. Medical Branch docusate 2020-0 Yes [id number] 240mg Take 1 Un hernan calcium 240 5-20 capsule by it y of mg capsule 00:00: mouth once [place] 00 daily as Medical needed for Branch Constipati on. ferrous 2020-0 Yes [id number] 325mg Take 1 Uni vers sulfate 325 5-20 tablet by ity of mg (65 mg 00:00: mouth 2 [place] iron) 00 (two) Medical tablet times Branch daily. ibuprofen 2020-0 Yes [id number] 600mg Take 1 U nivers 600 mg 5-20 tablet by ity of tablet 00:00: mouth [place] 00 every 6 Medical (six) Branch hours as needed (Pain). Take with food or milk. acetaminoph 2020-0 Yes [id number] 650mg Take 2 [facility] en 325 mg 5-20 tablets by ity of tablet 00:00: mouth [place] 00 every 6 Medical (six) Branch hours as needed for Pain (scale 1-3) or Pain (scale 4-6). 2020-0 Yes [id number] 1{tbl} Take 1 U nivers vitamin 5-20 tablet by ity of w/FA tablet 00:00: mouth [place] 00 daily. Medical Branch gabapentin 2020-0 2020- No [id number] 300mg Take 1 [facility] 300 mg 5-20 05-26 capsule by ity of capsule 00:00: 04:59 mouth 3 [place] 00 :00 (three) Medical times Branch daily for 5 days. gabapentin 2020-0 2020- No [id number] 300mg Take 1 [facility] 300 mg 5-20 05-26 capsule by ity of capsule 00:00: 04:59 mouth 3 [place] 00 :00 (three) Medical times Topping daily for 5 days. gabapentin 2020-0 2020- No [id number] 300mg Take 1 [facility] 300 mg 5-20 - capsule by ity of capsule 00:00: 04:59 mouth 3 [place] 00 :00 (three) [facility] times Topping daily for 5 days. gabapentin 2020-0 2020- No [id number] 300mg Take 1 [facility] 300 mg 5-20 - capsule by ity of capsule 00:00: 04:59 mouth 3 [place] 00 :00 (three) [facility] times Topping daily for 5 days. acetaminoph 2019-0 2020- No 1000mg 1,000 mg, Univers en ADULT -09 03- IV ity of (OFIRMEV) 20:15: 20:47 Infusion, [place] injection 00 :00 Administer Medi tamera 1,000 mg over 15 Branch Minutes, ONCE, 1 dose, [facility] 03/09/20 at 1515, Routine
Indica tion: Perioperat seda Patient gabapentin 2019-0 Yes 300mg 300 mg, Uni vers (NEURONTIN) 03-09 Oral, TID, it y of capsule 300 19:00: First dose [place] mg 00 on [facility] 03/09/20 at Branch 1400, Until Discontinu ed, Routine rho(D) 2019-0 Yes 300ug 300 mcg, Univer s immune 03-09 Intramuscu ity of globulin 16:36: lar, ONCE, [place] (RHOGAM) 01 For 1 Medical syringe 300 dose, Branch mcg Conditiona l, Routine diphenhydrA 2020-0 Yes 25mg 25 mg, Univ ers MINE - Oral, ity of (BENADRYL) 16:35: Q6HPRN, [place] tablet 25 55 Starting Medica l mg [facility] 03/09/20 at 1135, Until Discontinu ed, Routine, Sleep, Itching ondansetron 2020-0 Yes 4mg 4 mg, Slow Univers (ZOFRAN - IV Push, ity of (PF)) 16:35: Q8HPRN, [place] injection 4 55 Starting Medi tamera mg [facility] 03/09/20 at 1135, Until Discontinu ed, Routine, Nausea and Vomiting (N/V) bisacodyL 2019-0 Yes 10mg 10 mg, Univer s (DULCOLAX) 5- Rectal, ity of suppository 16:35: QDAILYPRN, [place] 10 mg 55 Starting Medical [facility] Branch 03/09/20 at 1135, Until Discontinu ed, Routine, Constipati on simethicone 2020-0 Yes 160mg 160 mg, Un hernan (GAS RELIEF 03-09 Oral, ity of (SIMETHICON 16:35: PC+HSPRN, [place] E)) 55 Starting Medical chewable [facility] tablet 160 03/09/20 at mg 1135, Until Discontinu ed, Routine, Gas docusate 2020-0 Yes 240mg 240 mg, Unive rs calcium 03-09 Oral, ity of (SURFAK) 16:35: QDAILYPRN, [place] capsule 240 55 Starting Medi tamera mg [facility] Branch 03/09/20 at 1135, Until Discontinu ed, Routine, Constipati on magnesium 2019-0 Yes 30mL 30 mL, Univer s hydroxide 03-09 Oral, ity of (MILK OF 16:35: QDAILYPRN, [place] MAGNESIA) 55 Starting Medica l 400 mg/5 mL [facility] suspension 03/09/20 at 30 mL 1135, Until Discontinu ed, Routine, Constipati on mupirocin 2019-0 Yes Intra-op Univ ers (BACTROBAN 03-09 ity of OINT) 2 % 14:42: [place] skin 00 Medical ointment Branch diphenhydrA 2020- No 25mg 25 mg, Uni vers MINE 03-09 Slow IV ity of (BENADRYL) 14:10: 23:55 Push, [place] injection 46 :37 Q4HPRN, Medical 25 mg Starting Branch [facility] 03/09/20 at 0910, Until 03/10/20 at 1855, Routine, Itching nalbuphine 2019-0 Yes 5mg 5 mg, Univer s (NUBAIN) 03-09 Intravenou ity o f injection 5 14:09: s, PRN, 1 [place] mg 35 dose, Medical Starting Branch [facility] 03/09/20 at 0909, Until Discontinu ed, Routine, Itching naloxone 0 2020- No .4mg 0.4 mg, Unive rs (NARCAN) 03-09 Slow IV ity of injection 14:09: 23:14 Push, PRN [place] 0.4 mg 35 :19 - SEE Medical INSTRUCTIO Branch NS, Starting 03/09/20 at 0909, Until [place] 03/11/20 at 1814, Routine, Analgesia Recovery sodium 2019-0 Yes PRN, Univers chloride 03-09 Starting ity of 0.9 % 14:00: Tue [place] irrigation 00 03/09/20 at Med ical solution 0900, Branch Until Discontinu ed, Intra-op 2019-0 Yes Take by Unive rs vit 03-09 mouth. ity of calc,iron,f 11:22: [place] [address] Medical ( Branch VITAMIN ORAL) D5W-LR IV 2019-0 2020- No 1000mL at 125 Uni vers infusion 03-09 mL/hr, IV ity o f 1,000 mL 11:15: 16:36 Infusion, [place] 00 :02 CONTINUOUS Medical , Starting Branch 03/09/20 at 0615, Until 03/09/20 at 1136, Routine lactated 0 2020- No 500mL at 999 Unive rs ringers IV 03-09 mL/hr, 500 it y of infusion 11:15: 11:36 mL, IV [place] 500 mL 00 :00 Infusion, Medical ONCE, 1 Branch dose, 03/09/20 at 0615, Routine sodium 2019-0 2020- No 30mL 30 mL, Univers citrate-cit 03-09 Oral, ity of trina acid 11:11: 12:58 PRE-PROCED [place] (BICITRA) 25 :00 URE ONCE, Medic al 500-334 1 dose, Branch mg/5 mL Starting solution 30 Tue mL 03/09/20 at 0611, Until Discontinu ed, Routine, Surgery/Pr ocedure 2019-0 Yes Take by Unive rs vit 02-27 mouth. ity of calc,iron,f 20:55: [place] [address] Medical ( Branch VITAMIN ORAL) 2020-0 Yes Take by Unive rs vit - mouth. ity of calc,iron,f 20:55: [place] [address] Medical ( Branch VITAMIN ORAL) 2020-0 Yes Take by Unive rs vit 02-27 mouth. ity of calc,iron,f 20:55: [place] olic 51 Medical ( Branch VITAMIN ORAL) 2020-0 Yes Take by Unive rs vit 5-09 mouth. ity of calc,iron,f 20:55: [place] [address] Medical ( Branch VITAMIN ORAL) 2020-0 Yes Take by Unive rs vit 5-09 mouth. ity of calc,iron,f 20:55: [place] [address] Medical ( Branch VITAMIN ORAL) 2020-0 Yes Take by Unive rs vit 5-09 mouth. ity of calc,iron,f 20:55: [place] [address] Medical ( Branch VITAMIN ORAL) 2020-0 Yes Take by Unive rs vit 4-03 mouth. ity of calc,iron,f 19:28: [place] [address] Medical ( Branch VITAMIN ORAL) 2020-0 Yes Take by Unive rs vit 4-03 mouth. ity of calc,iron,f 19:28: [place] [address] Medical ( Branch VITAMIN ORAL) 2020-0 Yes Take by Unive rs vit 4-03 mouth. ity of calc,iron,f 19:28: [place] [address] Medical ( Branch VITAMIN ORAL) 2020-0 Yes Take by Unive rs vit 4-03 mouth. ity of calc,iron,f 19:28: [place] [address] Medical ( Branch VITAMIN ORAL) 2020-0 Yes Take by Unive rs vit 4-03 mouth. ity of calc,iron,f 19:28: [place] [address] Medical ( Branch VITAMIN ORAL) 2020-0 Yes Take by Unive rs vit 4-03 mouth. ity of calc,iron,f 19:28: [place] [address] Medical ( Branch VITAMIN ORAL) 2020-0 Yes Take by Unive rs vit 4-03 mouth. ity of calc,iron,f 19:28: [place] [address] Medical ( Branch VITAMIN ORAL) 2020-0 Yes Take by Unive rs vit 4-03 mouth. ity of calc,iron,f 19:28: [place] [address] Medical ( Branch VITAMIN ORAL) 2020-0 Yes Take by Unive rs vit 4-03 mouth. ity of calc,iron,f 19:28: [place] [address] Medical ( Branch VITAMIN ORAL) 2020-0 Yes Take by Unive rs vit 4-03 mouth. ity of calc,iron,f 19:28: [facility] 20 Medical ( Branch VITAMIN ORAL) cefTRIAXone 2020-0 2020- No 1000mg 1,000 mg, Univers (ROCEPHIN) 2-05 23- Intramuscu it y of injection 03:00: 02:28 lar, ONCE, [place] 1,000 mg 00 :00 1 dose, Medical 11/28/19 Branch at 2100, JESSICA
Re ason for Anti-Infec tive: Empiric Therapy for Suspected Infection< br>Empiric Therapy Site: Urine
D uration of therapy: 72 hours 2020-0 Yes Take by Unive rs vit 2-08 mouth. ity of calc,iron,f 02:55: [place] [address] Medical ( Branch VITAMIN ORAL) 2020-0 Yes Take by Unive rs vit 2-08 mouth. ity of calc,iron,f 02:55: [address] ( Branch VITAMIN ORAL) 2020-0 Yes Take by Unive rs vit 2-08 mouth. ity of calc,iron,f 02:55: [address] ( Branch VITAMIN ORAL) 2020-0 Yes Take by Unive rs vit 2-08 mouth. ity of calc,iron,f 02:55: [address] ( Branch VITAMIN ORAL) 2020-0 Yes Take by Unive rs vit 2-08 mouth. ity of calc,iron,f 02:55: [address] ( Branch VITAMIN ORAL) 2020-0 Yes Take by Unive rs vit 2-08 mouth. ity of calc,iron,f 02:55: [address] ( Branch VITAMIN ORAL) 2020-0 Yes Take by Unive rs vit 2-08 mouth. ity of calc,iron,f 02:55: [place] [address] Medical ( Branch VITAMIN ORAL) 2020-0 Yes Take by Unive rs vit 2-08 mouth. ity of calc,iron,f 02:55: [place] [address] Medical ( Branch VITAMIN ORAL) 2020-0 Yes Take by Unive rs vit 2-08 mouth. ity of calc,iron,f 02:55: [address] ( Branch VITAMIN ORAL) 2020-0 Yes Take by Unive rs vit 2-08 mouth. ity of calc,iron,f 02:55: [facility] Medical ( Branch VITAMIN ORAL) 2019-0 Yes Take by Unive rs vit 2-08 mouth. ity of calc,iron,f 02:55: [facility] Medical ( Branch VITAMIN ORAL) 2019-0 Yes Take by Unive rs vit 2-08 mouth. ity of calc,iron,f 02:55: [facility] Medical ( Branch VITAMIN ORAL) Yes Take by Unive rs vit 2-08 mouth. ity of calc,iron,f 02:55: [facility] Medical ( Branch VITAMIN ORAL) Nitrofurant 2019-0 Yes [id number] 100mg Take 1 Univers oin&Nit. 1-30 capsule by ity o f [place] 00:00: mouth 2 [place] (MACROBID) 00 (two) Medical 100 mg times Branch capsule daily. Nitrofurant 2019-0 Yes [id number] 100mg Take 1 [facility] oin&Nit. 1-30 capsule by ity o f Macrocryst 00:00: mouth 2 [place] (MACROBID) 00 (two) Medical 100 mg times Branch capsule daily. Nitrofurant 2019-0 Yes [id number] 100mg Take 1 [facility] oin&Nit. 1-30 capsule by ity o f Macrocryst 00:00: mouth 2 [place] (MACROBID) 00 (two) Medical 100 mg times Branch capsule daily. Nitrofurant 2019-0 Yes [id number] 100mg Take 1 Univers oin&Nit. 1-30 capsule by ity o f Macrocryst 00:00: mouth 2 [place] (MACROBID) 00 (two) Medical 100 mg times Branch capsule daily. Nitrofurant 0 2020- No [id number] 100mg Take 1 Univers oin&Nit. 1-30 02-07 capsule by ity of Macrocryst 00:00: 00:00 mouth 2 [place] (MACROBID) 00 :00 (two) Medical 100 mg times Branch capsule daily. CETIRIZINE 2020-0 Yes [id number] TAKE 1 U nivers 10 mg 1-09 TABLET BY ity of tablet 00:00: MOUTH [place] 00 EVERY DAY Medical Branch CETIRIZINE 2020-0 Yes [id number] TAKE 1 U nivers 10 mg 1-09 TABLET BY ity of tablet 00:00: MOUTH [place] 00 EVERY DAY Medical Branch CETIRIZINE 2020-0 Yes [id number] TAKE 1 U nivers 10 mg 1-09 TABLET BY ity of tablet 00:00: MOUTH [place] 00 EVERY DAY Medical Branch CETIRIZINE 2020-0 Yes [id number] TAKE 1 U nivers 10 mg 1-09 TABLET BY ity of tablet 00:00: MOUTH [place] 00 EVERY DAY Medical Branch CETIRIZINE 2020-0 Yes [id number] TAKE 1 U nivers 10 mg 1-09 TABLET BY ity of tablet 00:00: MOUTH [place] 00 EVERY DAY Medical Branch CETIRIZINE 2020-0 Yes [id number] TAKE 1 U nivers 10 mg 1-09 TABLET BY ity of tablet 00:00: MOUTH [place] 00 EVERY DAY Medical Branch CETIRIZINE 2020-0 2020- No [id number] TAKE 1 Univers 10 mg 1-09 02-07 TABLET BY ity of tablet 00:00: 00:00 MOUTH [place] 00 :00 EVERY DAY Medical Branch fluticasone 2018-10 Yes [id number] 2{spray Use 2 Univers propionate 2-13 } Sprays in ity of 50 00:00: each [place] mcg/actuati 00 nostril Medic al on nasal daily. Branch spray fluticasone 2018-10 Yes [id number] 2{spray Use 2 Univers propionate 2-13 } Sprays in ity of 50 00:00: each [place] mcg/actuati 00 nostril Medic al on nasal daily. Branch spray fluticasone 2018-10 Yes [id number] 2{spray Use 2 [facility] propionate 2-13 } Sprays in ity of 50 00:00: each [place] mcg/actuati 00 nostril Medic al on nasal daily. Branch spray fluticasone 2018-10 Yes [id number] 2{spray Use 2 [facility] propionate 2-13 } Sprays in ity of 50 00:00: each [place] mcg/actuati 00 nostril Medic al on nasal daily. Branch spray fluticasone 2018-10 Yes [id number] 2{spray Use 2 [facility] propionate 2-13 } Sprays in ity of 50 00:00: each [place] mcg/actuati 00 nostril Medic al on nasal daily. Branch spray fluticasone 2018-10 Yes [id number] 2{spray Use 2 [facility] propionate 2-13 } Sprays in ity of 50 00:00: each [place] mcg/actuati 00 nostril Medic al on nasal daily. Branch spray fluticasone 2018-10 Yes [id number] 2{spray Use 2 [facility] propionate 2-13 } Sprays in ity of 50 00:00: each [place] mcg/actuati 00 nostril Medic al on nasal daily. Branch spray fluticasone 2018-10 2020- No [id number] 2{spray Use 2 [facility] propionate 2-13 02-07 } Sprays in ity of 50 00:00: 00:00 each [place] mcg/actuati 00 :00 nostril Medic al on nasal daily. Branch spray 2018-10 Yes Take by [employer] rs vit 2-09 mouth. ity of calc,iron,f 20:35: [place] [address] Medical ( Branch VITAMIN ORAL) 2018-10 Yes Take by Unive rs vit 2-09 mouth. ity of calc,iron,f 20:35: [place] [address] Medical ( Branch VITAMIN ORAL) 2018-10 Yes Take by [employer] rs vit 2-09 mouth. ity of calc,iron,f 20:35: [place] [address] Medical ( Branch VITAMIN ORAL) 2018-10 Yes Take by Unive rs vit 2-09 mouth. ity of calc,iron,f 20:35: [place] [address] Medical ( Branch VITAMIN ORAL) 2018-10 Yes Take by Unive rs vit 2-09 mouth. ity of calc,iron,f 20:35: [place] [address] Medical ( Branch VITAMIN ORAL) 2018-10 Yes Take by Unive rs vit 2-09 mouth. ity of calc,iron,f 20:35: [place] [address] Medical ( Branch VITAMIN ORAL) 2018-10 Yes Take by Unive rs vit 2-09 mouth. ity of calc,iron,f 20:35: [place] [address] Medical ( Branch VITAMIN ORAL) FREESTYLE 2018-10 Yes CHECK Univers LANCETS 28 0-08 BLOOD ity of gauge Misc 00:00: [place]AR 4 [place] 00 TIMES Medical DAILY Branch FREESTYLE 2018-10 Yes CHECK Univers LANCETS 28 0-08 BLOOD ity of gauge Misc 00:00: [place]AR 4 [place] 00 TIMES Medical DAILY Branch FREESTYLE 2018-10 Yes CHECK Univers LANCETS 28 0-08 BLOOD ity of gauge Misc 00:00: [place]AR 4 [place] 00 TIMES Medical DAILY Branch FREESTYLE 2019-1 Yes CHECK Univers LANCETS 28 0-08 BLOOD ity of gauge Misc 00:00: [place] 4 [place] 00 TIMES Medical DAILY Branch FREESTYLE 2019-1 Yes CHECK Univers LANCETS 28 0-08 BLOOD ity of gauge Misc 00:00: [place]AR 4 [place] 00 TIMES Medical DAILY Branch FREESTYLE 2019-1 Yes CHECK Univers LANCETS 28 0-08 BLOOD ity of gauge Misc 00:00: [place]AR 4 [place] 00 TIMES Medical DAILY Branch FREESTYLE 2019-1 Yes CHECK Univers LANCETS 28 0-08 BLOOD ity of gauge Misc 00:00: [place]AR 4 [place] 00 TIMES Medical DAILY Branch FREESTYLE 2019-1 Yes CHECK Univers LANCETS 28 0-08 BLOOD ity of gauge Misc 00:00: [place] 4 [place] 00 TIMES Medical DAILY Branch FREESTYLE 2019-1 Yes CHECK Univers LANCETS 28 0-08 BLOOD ity of gauge Misc 00:00: [place] 4 [place] 00 TIMES Medical DAILY Branch FREESTYLE 2019-1 Yes CHECK Univers LANCETS 28 0-08 BLOOD ity [place] gauge Misc [place] [facility]ILY [facility] FREESTYLE 2019-1 Yes CHECK [facility] LANCETS 28 0-08 BLOOD ity of gauge Misc 00:00[place] TIMES [facility] DAILY [facility] FREESTYLE 2019-1 Yes CHECK [facility] LANCETS 28 0-08 BLOOD ity of gauge Misc 00:00: [place] TIMES [facility] DAILY [facility] FREESTYLE 2019-1 Yes CHECK [facility] LANCETS 28 0-08 BLOOD ity of gauge Misc 00:00: [place] TIMES [facility] DAILY [facility] FREESTYLE 2019-1 Yes CHECK [facility] LANCETS 28 0-08 BLOOD ity of gauge Misc 00:00: [place] TIMES [facility] DAILY [facility] FREESTYLE 2019-1 Yes CHECK [facility] LANCETS 28 0-08 BLOOD ity of gauge Misc 00:00: [place] TIMES [facility] DAILY [facility] FREESTYLE 2019-1 Yes CHECK [facility] LANCETS 28 0-08 BLOOD ity of gauge Misc 00:00: [place] 4 [place] TIMES [facility] DAILY [facility] FREESTYLE 2019-1 Yes CHECK [facility] LANCETS 28 0-08 BLOOD ity of gauge Misc 00:00: [place] TIMES [facility] DAILY [facility] FREESTYLE 2019-1 Yes CHECK [facility] LANCETS 28 0-08 BLOOD ity of gauge Misc 00:00: [place] TIMES [facility] DAILY [facility] FREESTYLE 2019-1 Yes CHECK [facility] LANCETS 28 0-08 BLOOD ity of gauge Misc 00:00: [place] TIMES [facility] DAILY [facility] FREESTYLE 2019-1 Yes CHECK [facility] LANCETS 28 0-08 BLOOD ity of gauge Misc 00:00: [place] 4 [place] TIMES [facility] DAILY [facility] FREESTYLE 2019-1 Yes CHECK [facility] LANCETS 28 0-08 BLOOD ity of gauge Misc 00:00: [place] 4 [place] TIMES [facility] DAILY Branch FREESTYLE 2019-1 Yes CHECK [facility] LANCETS 28 0-08 BLOOD ity of gauge Misc 00:00: [place] 4 [place] 00 TIMES [facility] DAILY Branch FREESTYLE 2019-1 Yes CHECK [facility] LANCETS 28 0-08 BLOOD ity of gauge Misc 00:00: [place] 4 [place] 00 TIMES [facility] DAILY [facility] FREESTYLE 2019-1 Yes CHECK [facility] LANCETS 28 0-08 BLOOD ity of gauge Misc 00:00: [place] 4 [place] 00 TIMES [facility] DAILY Branch FREESTYLE 2019-1 Yes CHECK [facility] LANCETS 28 0-08 BLOOD ity of gauge Misc 00:00: [place] 4 [place] TIMES [facility] DAILY [facility] FREESTYLE 2019-1 Yes CHECK [facility] LANCETS 28 0-08 BLOOD ity of gauge Misc 00:00: [place] 4 [place] TIMES [facility] DAILY [facility] FREESTYLE 2019-1 Yes CHECK [facility] LANCETS 28 0-08 BLOOD ity of gauge Misc 00:00: [place] 4 [place] TIMES [facility] DAILY [facility] FREESTYLE 2019-1 Yes CHECK [facility] LANCETS 28 0-08 BLOOD ity of gauge Misc 00:00: [place] 4 [place] TIMES [facility] DAILY Branch FREESTYLE 2019-1 Yes CHECK [facility] LANCETS 28 0-08 BLOOD ity of gauge Misc 00:00: [place] TIMES [facility] DAILY [facility] FREESTYLE 2019-1 Yes CHECK [facility] LANCETS 28 0-08 BLOOD ity of gauge Misc 00:00: [place] 4 [place] TIMES [facility] DAILY Branch FREESTYLE 2019-1 Yes CHECK [facility] LANCETS 28 0-08 BLOOD ity of gauge Misc 00:00: [place] 4 [place] 00 TIMES [facility] DAILY [facility] FREESTYLE 2019- Yes CHECK [facility] LANCETS 28 0-08 BLOOD ity of gauge Misc 00:00: [place] 4 [place] 00 TIMES [facility] DAILY Branch FREESTYLE 2019- Yes CHECK [facility] LANCETS 28 0-08 BLOOD ity of gauge Misc 00:00: [place] 4 [place] 00 TIMES [facility] DAILY Branch FREESTYLE 2019- Yes CHECK [facility] LANCETS 28 0-08 BLOOD ity of gauge Misc 00:00: [place] 4 [place] 00 TIMES [facility] DAILY Branch FREESTYLE 2019- Yes CHECK [facility] LANCETS 28 0-08 BLOOD ity of gauge Misc 00:00: [place] 4 [place] TIMES [facility] DAILY Branch FREESTYLE 2019- Yes CHECK [facility] LANCETS 28 0-08 BLOOD ity of gauge Misc 00:00: [place] 4 [place] TIMES [facility] DAILY Branch FREESTYLE 2019- Yes CHECK [facility] LANCETS 28 0-08 BLOOD ity of gauge Misc 00:00: [place] 4 [place] TIMES [facility] DAILY [facility] FREESTYLE 2019- 2020- No CHECK Univer [facility] LANCETS 28 0-08 05-20 BLOOD ity of gauge Misc 00:00: 00:00 SUGAR 4 [place] 00 :00 TIMES [facility] DAILY Branch FREESTYLE 2019- 2020- No CHECK Univer s LANCETS 28 0-08 05-20 BLOOD ity of gauge Misc 00:00: 00:00 SUGAR 4 [place] 00 :00 TIMES Medical DAILY Branch Blood-Gluco 2019- Yes [id number] Check U nivers se Meter 9-25 blood ity of (TRUE 00:00: sugar 4 [place] [employer] 00 times Medical GLUCOSE daily Branch METER) Kit blood sugar 2019- Yes [id number] Check U nivers diagnostic 9-25 blood ity of (TRUE 00:00: sugar 4 [place] METRI[facility] 00 times Medical GLUCOSE daily Branch TEST STRIP) strip lancets 30 2018- Yes [id number] Check Un hernan gauge Misc 9-25 blood ity of 00:00: sugar 4 [place] 00 times Medical daily Branch Blood-Gluco 2019- Yes [id number] Check U nivers se Meter 9-25 blood ity of (TRUE 00:00: sugar 4 [place] [employer] 00 times Medical GLUCOSE daily Branch METER) Kit blood sugar 2019- Yes [id number] Check U nivers diagnostic 9-25 blood ity of (TRUE 00:00: sugar 4 [place] [facility] 00 times Medical GLUCOSE daily Branch TEST STRIP) strip lancets Yes [id number] Check Un [facility]nan gauge Misc 9-25 blood ity of 00:00: sugar 4 [place] 00 times Medical daily Branch Blood-Gluco Yes [id number] Check U nivers se Meter 9-25 blood ity of (TRUE 00:00: sugar 4 [place] [employer] 00 times Medical GLUCOSE daily Branch METER) Kit blood sugar Yes [id number] Check U nivers diagnostic 9-25 blood ity of (TRUE 00:00: sugar 4 [place] [facility] 00 times Medical GLUCOSE daily Branch TEST STRIP) strip lancets Yes [id number] Check Un [facility]nan gauge Misc 9-25 blood ity of 00:00: sugar 4 [place] 00 times Medical daily Branch Blood-Gluco Yes [id number] Check U nivers se Meter 9-25 blood ity of (TRUE 00:00: sugar 4 [place] [employer] 00 times Medical GLUCOSE daily Branch METER) Kit blood sugar Yes [id number] Check U nivers diagnostic 9-25 blood ity of (TRUE 00:00: sugar 4 [place] [facility] 00 times Medical GLUCOSE daily Branch TEST STRIP) strip lancets Yes [id number] Check Un [facility] gauge Misc 9-25 blood ity of 00:00: sugar 4 [place] 00 times Medical daily Branch Blood-Gluco Yes [id number] Check U nivers se Meter 9-25 blood ity of (TRUE 00:00: sugar 4 [place] [employer] 00 times Medical GLUCOSE daily Branch METER) Kit blood sugar Yes [id number] Check U nivers diagnostic 9-25 blood ity of (TRUE 00:00: sugar 4 [place] [facility] 00 times Medical GLUCOSE daily Branch TEST STRIP) strip lancets Yes [id number] Check Un [facility] gauge Misc 9-25 blood ity of 00:00: sugar 4 [place] 00 times Medical daily Branch Blood-Gluco Yes [id number] Check U nivers se Meter 9-25 blood ity of (TRUE 00:00: sugar 4 [place] [employer] 00 times Medical GLUCOSE daily Branch METER) Kit blood sugar Yes [id number] Check U nivers diagnostic 9-25 blood ity of (TRUE 00:00: sugar 4 [place] [facility] 00 times Medical GLUCOSE daily Branch TEST STRIP) strip lancets Yes [id number] Check Un [facility]nan gauge Misc 9-25 blood ity of 00:00: sugar 4 [place] 00 times Medical daily Branch Blood-Gluco Yes [id number] Check U nivers se Meter 9-25 blood ity of (TRUE 00:00: sugar 4 [place] [employer] 00 times Medical GLUCOSE daily Branch METER) Kit blood sugar Yes [id number] Check U nivers diagnostic 9-25 blood ity of (TRUE 00:00: sugar 4 [place] [facility] 00 times Medical GLUCOSE daily Branch TEST STRIP) strip lancets Yes [id number] Check Un [facility] gauge Misc 9-25 blood ity of 00:00: sugar 4 [place] 00 times Medical daily Branch Blood-Gluco Yes [id number] Check U nivers se Meter 9-25 blood ity of (TRUE 00:00: sugar 4 [place] [employer] 00 times Medical GLUCOSE daily Branch METER) Kit blood sugar Yes [id number] Check U nivers diagnostic 9-25 blood ity of (TRUE 00:00: sugar 4 [place] [facility] 00 times Medical GLUCOSE daily Branch TEST STRIP) strip lancets Yes [id number] Check Un [facility] gauge Misc 9-25 blood ity of 00:00: sugar 4 [place] 00 times Medical daily Branch Blood-Gluco Yes [id number] Check U nivers se Meter 9-25 blood ity of (TRUE 00:00: sugar 4 [place] [employer] 00 times Medical GLUCOSE daily Branch METER) Kit blood sugar Yes [id number] Check U nivers diagnostic 9-25 blood ity of (TRUE 00:00: sugar 4 [place] [facility] 00 times Medical GLUCOSE daily Branch TEST STRIP) strip lancets Yes [id number] Check [facility] gauge Misc 9-25 blood ity of 00:00: sugar 4 [place] 00 times Medical daily Branch Blood-Gluco Yes [id number] Check U nivers se Meter 9-25 blood ity of (TRUE 00:00: sugar 4 [place] [employer] 00 times Medical GLUCOSE daily Branch METER) Kit blood sugar Yes [id number] Check U nivers diagnostic 9-25 blood ity of (TRUE 00:00: sugar 4 [place] [facility] 00 times Medical GLUCOSE daily Branch TEST STRIP) strip lancets Yes [id number] Check Un [facility] gauge Misc 9-25 blood ity of 00:00: sugar 4 [place] 00 times Medical daily Branch Blood-Gluco Yes [id number] Check U nivers se Meter 9-25 blood ity of (TRUE 00:00: sugar 4 [place] [employer] 00 times Medical GLUCOSE daily Branch METER) Kit blood sugar Yes [id number] Check U nivers diagnostic 9-25 blood ity of (TRUE 00:00: sugar 4 [place] [facility] 00 times Medical GLUCOSE daily Branch TEST STRIP) strip lancets Yes [id number] Check Un [facility]nan gauge Misc 9-25 blood ity of 00:00: sugar 4 [place] 00 times Medical daily Branch Blood-Gluco Yes [id number] Check U nivers se Meter 9-25 blood ity of (TRUE 00:00: sugar 4 [place] [employer] 00 times Medical GLUCOSE daily Branch METER) Kit blood sugar Yes [id number] Check U nivers diagnostic 9-25 blood ity of (TRUE 00:00: sugar 4 [place] [facility] 00 times Medical GLUCOSE daily Branch TEST STRIP) strip lancets Yes [id number] Check Un hernan gauge Misc 9-25 blood ity of 00:00: sugar 4 [place] 00 times Medical daily Branch Blood-Gluco Yes [id number] Check U nivers se Meter 9-25 blood ity of (TRUE 00:00: sugar 4 [place] [employer] 00 times Medical GLUCOSE daily Branch METER) Kit blood sugar Yes [id number] Check U nivers diagnostic 9-25 blood ity of (TRUE 00:00: sugar 4 [place] [facility] 00 times Medical GLUCOSE daily Branch TEST STRIP) strip lancets Yes [id number] Check Un [facility]nan gauge Misc 9-25 blood ity of 00:00: sugar 4 [place] 00 times Medical daily Branch Blood-Gluco Yes [id number] Check U nivers se Meter 9-25 blood ity of (TRUE 00:00: sugar 4 [place] [employer] 00 times Medical GLUCOSE daily Branch METER) Kit blood sugar Yes [id number] Check U nivers diagnostic 9-25 blood ity of (TRUE 00:00: sugar 4 [place] [facility] 00 times Medical GLUCOSE daily Branch TEST STRIP) strip lancets Yes [id number] Check Un hernan gauge Misc 9-25 blood ity of 00:00: sugar 4 [place] 00 times Medical daily Branch Blood-Gluco Yes [id number] Check U nivers se Meter 9-25 blood ity of (TRUE 00:00: sugar 4 [place] [employer] 00 times Medical GLUCOSE daily Branch METER) Kit blood sugar Yes [id number] Check U nivers diagnostic 9-25 blood ity of (TRUE 00:00: sugar 4 [place] [facility] 00 times Medical GLUCOSE daily Branch TEST STRIP) strip lancets Yes [id number] Check Un hernan gauge Misc 9-25 blood ity of 00:00: sugar 4 [place] 00 times Medical daily Branch Blood-Gluco Yes [id number] Check U nivers se Meter 9-25 blood ity of (TRUE 00:00: sugar 4 [place] [employer] 00 times Medical GLUCOSE daily Branch METER) Kit blood sugar Yes [id number] Check U nivers diagnostic 9-25 blood ity of (TRUE 00:00: sugar 4 [place] [facility] 00 times Medical GLUCOSE daily Branch TEST STRIP) strip lancets Yes [id number] Check Un hernan gauge Misc 9-25 blood ity of 00:00: sugar 4 [place] 00 times Medical daily Branch Blood-Gluco Yes [id number] Check U nivers se Meter 9-25 blood ity of (TRUE 00:00: sugar 4 [place] [employer] 00 times Medical GLUCOSE daily Branch METER) Kit blood sugar Yes [id number] Check U nivers diagnostic 9-25 blood ity of (TRUE 00:00: sugar 4 [place] [facility] 00 times Medical GLUCOSE daily Branch TEST STRIP) strip lancets Yes [id number] Check Un [facility]nan gauge Misc 9-25 blood ity of 00:00: sugar 4 [place] 00 times Medical daily Branch Blood-Gluco Yes [id number] Check U nivers se Meter 9-25 blood ity of (TRUE 00:00: sugar 4 [place] [employer] 00 times Medical GLUCOSE daily Branch METER) Kit blood sugar Yes [id number] Check U nivers diagnostic 9-25 blood ity of (TRUE 00:00: sugar 4 [place] [facility] 00 times Medical GLUCOSE daily Branch TEST STRIP) strip lancets Yes [id number] Check Un hernan gauge Misc 9-25 blood ity of 00:00: sugar 4 [place] 00 times Medical daily Branch Blood-Gluco Yes [id number] Check U nivers se Meter 9-25 blood ity of (TRUE 00:00: sugar 4 [place] [employer] 00 times Medical GLUCOSE daily Branch METER) Kit blood sugar Yes [id number] Check U nivers diagnostic 9-25 blood ity of (TRUE 00:00: sugar 4 [place] [facility] 00 times Medical GLUCOSE daily Branch TEST STRIP) strip lancets Yes [id number] Check Un hernan gauge Misc 9-25 blood ity of 00:00: sugar 4 [place] 00 times Medical daily Branch Blood-Gluco Yes [id number] Check U nivers se Meter 9-25 blood ity of (TRUE 00:00: sugar 4 [place] [employer] 00 times Medical GLUCOSE daily Branch METER) Kit blood sugar Yes [id number] Check U nivers diagnostic 9-25 blood ity of (TRUE 00:00: sugar 4 [place] [facility] 00 times Medical GLUCOSE daily Branch TEST STRIP) strip lancets Yes [id number] Check Un [facility]nan gauge Misc 9-25 blood ity of 00:00: sugar 4 [place] 00 times Medical daily Branch Blood-Gluco Yes [id number] Check U nivers se Meter 9-25 blood ity of (TRUE 00:00: sugar 4 [place] [employer] 00 times Medical GLUCOSE daily Branch METER) Kit blood sugar Yes [id number] Check U nivers diagnostic 9-25 blood ity of (TRUE 00:00: sugar 4 [place] [facility] 00 times Medical GLUCOSE daily Branch TEST STRIP) strip lancets Yes [id number] Check Un [facility] gauge Misc 9-25 blood ity of 00:00: sugar 4 [place] 00 times Medical daily Branch Blood-Gluco Yes [id number] Check U nivers se Meter 9-25 blood ity of (TRUE 00:00: sugar 4 [place] [employer] 00 times Medical GLUCOSE daily Branch METER) Kit blood sugar Yes [id number] Check U nivers diagnostic 9-25 blood ity of (TRUE 00:00: sugar 4 [place] [facility] 00 times Medical GLUCOSE daily Branch TEST STRIP) strip lancets Yes [id number] Check Un [facility]nan gauge Misc 9-25 blood ity of 00:00: sugar 4 [place] 00 times Medical daily Branch Blood-Gluco Yes [id number] Check U nivers se Meter 9-25 blood ity of (TRUE 00:00: sugar 4 [place] [employer] 00 times Medical GLUCOSE daily Branch METER) Kit blood sugar Yes [id number] Check U nivers diagnostic 9-25 blood ity of (TRUE 00:00: sugar 4 [place] [facility] 00 times Medical GLUCOSE daily Branch TEST STRIP) strip lancets Yes [id number] Check Un [facility]nan gauge Misc 9-25 blood ity of 00:00: sugar 4 [place] 00 times Medical daily Branch Blood-Gluco Yes [id number] Check U nivers se Meter 9-25 blood ity of (TRUE 00:00: sugar 4 [place] [employer] 00 times Medical GLUCOSE daily Branch METER) Kit blood sugar Yes [id number] Check U nivers diagnostic 9-25 blood ity of (TRUE 00:00: sugar 4 [place] [facility] 00 times Medical GLUCOSE daily Branch TEST STRIP) strip lancets Yes [id number] Check Un [facility]nan gauge Misc 9-25 blood ity of 00:00: sugar 4 [place] 00 times Medical daily Branch Blood-Gluco Yes [id number] Check U nivers se Meter 9-25 blood ity of (TRUE 00:00: sugar 4 [place] [employer] 00 times Medical GLUCOSE daily Branch METER) Kit blood sugar Yes [id number] Check U nivers diagnostic 9-25 blood ity of (TRUE 00:00: sugar 4 [place] [facility] 00 times Medical GLUCOSE daily Branch TEST STRIP) strip lancets Yes [id number] Check Un [facility]nan gauge Misc 9-25 blood ity of 00:00: sugar 4 [place] 00 times Medical daily Branch Blood-Gluco Yes [id number] Check U nivers se Meter 9-25 blood ity of (TRUE 00:00: sugar 4 [place] [employer] 00 times Medical GLUCOSE daily Branch METER) Kit blood sugar Yes [id number] Check U nivers diagnostic 9-25 blood ity of (TRUE 00:00: sugar 4 [place] [facility] 00 times Medical GLUCOSE daily Branch TEST STRIP) strip lancets Yes [id number] Check Un [facility]nan gauge Misc 9-25 blood ity of 00:00: sugar 4 [place] 00 times Medical daily Branch Blood-Gluco Yes [id number] Check U nivers se Meter 9-25 blood ity of (TRUE 00:00: sugar 4 [place] [employer] 00 times Medical GLUCOSE daily Branch METER) Kit blood sugar Yes [id number] Check U nivers diagnostic 9-25 blood ity of (TRUE 00:00: sugar 4 [place] [facility] 00 times Medical GLUCOSE daily Branch TEST STRIP) strip lancets Yes [id number] Check Un [facility]nan gauge Misc 9-25 blood ity of 00:00: sugar 4 [place] 00 times Medical daily Branch Blood-Gluco Yes [id number] Check U nivers se Meter 9-25 blood ity of (TRUE 00:00: sugar 4 [place] [employer] 00 times Medical GLUCOSE daily Branch METER) Kit blood sugar Yes [id number] Check U nivers diagnostic 9-25 blood ity of (TRUE 00:00: sugar 4 [place] [facility] 00 times Medical GLUCOSE daily Branch TEST STRIP) strip lancets Yes [id number] Check Un [facility]nan gauge Misc 9-25 blood ity of 00:00: sugar 4 [place] 00 times Medical daily Branch Blood-Gluco Yes [id number] Check U nivers se Meter 9-25 blood ity of (TRUE 00:00: sugar 4 [place] [employer] 00 times Medical GLUCOSE daily Branch METER) Kit blood sugar Yes [id number] Check U nivers diagnostic 9-25 blood ity of (TRUE 00:00: sugar 4 [place] [facility] 00 times Medical GLUCOSE daily Branch TEST STRIP) strip lancets Yes [id number] Check Un [facility]nan gauge Misc 9-25 blood ity of 00:00: sugar 4 [place] 00 times Medical daily Branch Blood-Gluco Yes [id number] Check U nivers se Meter 9-25 blood ity of (TRUE 00:00: sugar 4 [place] [employer] 00 times Medical GLUCOSE daily Branch METER) Kit blood sugar Yes [id number] Check U nivers diagnostic 9-25 blood ity of (TRUE 00:00: sugar 4 [place] [facility] 00 times Medical GLUCOSE daily Branch TEST STRIP) strip lancets Yes [id number] Check Un [facility]nan gauge Misc 9-25 blood ity of 00:00: sugar 4 [place] 00 times Medical daily Branch Blood-Gluco Yes [id number] Check U nivers se Meter 9-25 blood ity of (TRUE 00:00: sugar 4 [place] [employer] 00 times Medical GLUCOSE daily Branch METER) Kit blood sugar Yes [id number] Check U nivers diagnostic 9-25 blood ity of (TRUE 00:00: sugar 4 [place] [facility] 00 times Medical GLUCOSE daily Branch TEST STRIP) strip lancets Yes [id number] Check Un [facility] gauge Misc 9-25 blood ity of 00:00: sugar 4 [place] 00 times Medical daily Branch Blood-Gluco Yes [id number] Check U nivers se Meter 9-25 blood ity of (TRUE 00:00: sugar 4 [place] [employer] 00 times Medical GLUCOSE daily Branch METER) Kit blood sugar Yes [id number] Check U nivers diagnostic 9-25 blood ity of (TRUE 00:00: sugar 4 [place] [facility] 00 times Medical GLUCOSE daily Branch TEST STRIP) strip lancets Yes [id number] Check Un hernan gauge Misc 9-25 blood ity of 00:00: sugar 4 [place] 00 times Medical daily Branch Blood-Gluco Yes [id number] Check U nivers se Meter 9-25 blood ity of (TRUE 00:00: sugar 4 [place] [employer] 00 times Medical GLUCOSE daily Branch METER) Kit blood sugar Yes [id number] Check U nivers diagnostic 9-25 blood ity of (TRUE 00:00: sugar 4 [place] [facility] 00 times Medical GLUCOSE daily Branch TEST STRIP) strip lancets Yes [id number] Check Un [facility]nan gauge Misc 9-25 blood ity of 00:00: sugar 4 [place] 00 times Medical daily Branch Blood-Gluco Yes [id number] Check U nivers se Meter 9-25 blood ity of (TRUE 00:00: sugar 4 [place] [employer] 00 times Medical GLUCOSE daily Branch METER) Kit blood sugar Yes [id number] Check U nivers diagnostic 9-25 blood ity of (TRUE 00:00: sugar 4 [place] [facility] 00 times Medical GLUCOSE daily Branch TEST STRIP) strip lancets Yes [id number] Check Un [facility]nan gauge Misc 9-25 blood ity of 00:00: sugar 4 [place] 00 times Medical daily Branch Blood-Gluco Yes [id number] Check U nivers se Meter 9-25 blood ity of (TRUE 00:00: sugar 4 [place] [employer] 00 times Medical GLUCOSE daily Branch METER) Kit blood sugar Yes [id number] Check U nivers diagnostic 9-25 blood ity of (TRUE 00:00: sugar 4 [place] [facility] 00 times Medical GLUCOSE daily Branch TEST STRIP) strip lancets Yes [id number] Check Un [facility]nan gauge Misc 9-25 blood ity of 00:00: sugar 4 [place] 00 times Medical daily Branch Blood-Gluco Yes [id number] Check U nivers se Meter 9-25 blood ity of (TRUE 00:00: sugar 4 [place] [employer] 00 times Medical GLUCOSE daily Branch METER) Kit blood sugar Yes [id number] Check U nivers diagnostic 9-25 blood ity of (TRUE 00:00: sugar 4 [place] [facility] 00 times Medical GLUCOSE daily Branch TEST STRIP) strip lancets Yes [id number] Check Un hernan gauge Misc 9-25 blood ity of 00:00: sugar 4 [place] 00 times Medical daily Branch Blood-Gluco Yes [id number] Check U nivers se Meter 9-25 blood ity of (TRUE 00:00: sugar 4 [place] [employer] 00 times Medical GLUCOSE daily Branch METER) Kit blood sugar Yes [id number] Check U nivers diagnostic 9-25 blood ity of (TRUE 00:00: sugar 4 [place] [facility] 00 times Medical GLUCOSE daily Branch TEST STRIP) strip lancets Yes [id number] Check Un hernan gauge Misc 9-25 blood ity of 00:00: sugar 4 [place] 00 times Medical daily Branch Blood-Gluco 2020- No [id number] Check Univers se Meter 9-25 05-20 blood ity of (TRUE 00:00: 00:00 sugar 4 [place] [employer] 00 :00 times Medical GLUCOSE daily Branch METER) Kit blood sugar 2020- No [id number] Check Univers diagnostic 07-16 05-20 blood ity of (TRUE 00:00: 00:00 sugar 4 [place] [facility] 00 :00 times Medical GLUCOSE daily Branch TEST STRIP) strip lancets 30 2020- No [id number] Check U nivers gauge Misc 07-16 05-20 blood ity of 00:00: 00:00 sugar 4 [place] 00 :00 times Medical daily Branch Blood-Gluco 2020- No [id number] Check Univers se Meter 07-16-20 blood ity of (TRUE 00:00: 00:00 sugar 4 [place] [employer] [employer] 00 :00 times Medical GLUCOSE daily Branch METER) Kit blood sugar 2019- No [id number] Check Univers diagnostic 07-1620 blood ity of (TRUE 00:00: 00:00 sugar 4 [place] [facility] 00 :00 times Medical GLUCOSE daily Branch TEST STRIP) strip lancets 30 2019- No [id number] Check U nivers gauge Misc 07-1620 blood ity of 00:00: 00:00 sugar 4 [place] 00 :00 times Medical daily Branch SERTraline 2019- No 100mg Take 100 U nivers 100 mg 9- 09-19 mg by ity of tablet 14:57: 00:00 mouth [place] 05 :00 daily. Medical Branch SERTraline Yes 100mg Take 100 Un [facility]nan 100 mg 5-22 mg by ity of tablet 19:59: mouth [place] 40 daily. Medical Branch SERTraline Yes 100mg Take 100 [facility] 100 mg 5-22 mg by ity of tablet 19:59: mouth [place] 40 daily. Medical Branch norethindro Yes [id number] 1{tbl} Take 1 Univers ne-e.estrad 5-22 tablet by ity of iol-iron 00:00: mouth [place] ([place] 00 daily. [facility] LOESTRIN Topping FE) 1 mg-10 mcg (24)/10 mcg (2) per tablet norethindro Yes [id number] 1{tbl} Take 1 Univers ne-e.estrad 5-22 tablet by ity of iol-iron 00:00: mouth [place] ([place] 00 daily. [facility] LOESTRIN [facility] 1 mg-10 mcg (24)/10 mcg (2) per tablet norethindro 2019- No [id number] 1{tbl} Take 1 Univers ne-e.estrad 03-12 tablet by it y of iol-iron 00:00: 00:00 mouth [place] ([place] 00 :00 daily. Medical LOESTRIN Branch FE) 1 mg-10 mcg (24)/10 mcg (2) per tablet No known [facility] [place] [facility] Immunizations Ordered Filled Immunization Date Status Comments [facility] e Immunization Name Name SARS-COV-2 COVID-19 2021-09-19 Completed Unive rsity of PFIZER VACCINE 00:00:00 [facility] SARS-COV-2 COVID-19 2021-01-13 Completed Unive rsity of PFIZER VACCINE 00:00:00 [facility] SARS-COV-2 COVID-19 2021-01-13 Completed Unive rsity of PFIZER VACCINE 00:00:00 [facility] SARS-COV-2 COVID-19 2021-01-13 Completed Unive rsity of PFIZER VACCINE 00:00:00 [facility] SARS-COV-2 COVID-19 2021-01-13 Completed Unive rsity of PFIZER VACCINE 00:00:00 [facility] SARS-COV-2 COVID-19 2021-01-13 Completed Unive rsity of PFIZER VACCINE 00:00:00 [facility] SARS-COV-2 COVID-19 2020-12-23 Completed Unive rsity of PFIZER VACCINE 00:00:00 [facility] SARS-COV-2 COVID-19 2020-12-23 Completed Unive rsity of PFIZER VACCINE 00:00:00 [facility] SARS-COV-2 COVID-19 2020-12-23 Completed Unive rsity of PFIZER VACCINE 00:00:00 [facility] SARS-COV-2 COVID-19 2020-12-23 Completed Unive rsity of PFIZER VACCINE 00:00:00 [facility] SARS-COV-2 COVID-19 2020-12-23 Completed Unive rsity of PFIZER VACCINE 00:00:00 [facility] Influenza Virus 2019-09-02 Completed Universit y of Vaccine Quad .5 mL 00:00:00 [place] [facility] 6+ MO Branch Influenza Virus 2019-09-02 Completed Universit y of Vaccine Quad .5 mL 00:00:00 [place] [facility] IM 6+ MO Branch Influenza Virus 2019-09-02 Completed Universit y of Vaccine Quad .5 mL 00:00:00 [place] [facility] IM 6+ MO Branch Influenza Virus 2019-09-02 Completed Universit y of Vaccine Quad .5 mL 00:00:00 [place] [facility] IM 6+ MO Branch Influenza Virus 2019-09-02 Completed Universit y of Vaccine Quad .5 mL 00:00:00 [place] [facility] IM 6+ MO Branch Influenza Virus 2019-09-02 Completed Universit y of Vaccine Quad .5 mL 00:00:00 [place] [facility] IM 6+ MO Branch Influenza Virus 2019-09-02 Completed Universit y of Vaccine Quad .5 mL 00:00:00 [place] [facility] IM 6+ MO Branch Influenza Virus 2019-09-02 Completed [facility] .[facility] 00:00:00 [facility] Influenza Virus 2019-09-02 Completed [facility] .5 mL 00:00:00 [facility] Influenza Virus 2019-09-02 Completed [facility] .5 mL 00:00:00 [facility] Influenza Virus 2019-09-02 Completed [facility] .5 mL 00:00:00 [facility] Influenza Virus 2019-09-02 Completed [facility] .5 mL 00:00:00 [facility] Influenza Virus 2019-09-02 Completed [facility] .5 mL 00:00:00 [facility] Influenza Virus 2019-09-02 Completed [facility] .5 mL 00:00:00 [facility] Influenza Virus 2019-09-02 Completed [facility] .5 mL 00:00:00 [facility] Influenza Virus 2019-09-02 Completed [facility] .5 mL 00:00:00 [facility] Influenza Virus 2019-09-02 Completed [facility] .5 mL 00:00:00 [facility] Influenza Virus 2019-09-02 Completed [facility] .5 mL 00:00:00 [facility] Influenza Virus 2019-09-02 Completed [facility] .5 mL 00:00:00 [facility] Influenza Virus 2019-09-02 Completed [facility] .5 mL 00:00:00 [facility] Influenza Virus 2019-09-02 Completed [facility] .5 mL 00:00:00 [facility] Influenza Virus 2019-09-02 Completed [facility] .5 mL 00:00:00 [facility] Influenza Virus 2019-09-02 Completed [facility] .5 mL 00:00:00 [facility] Influenza Virus 2019-09-02 Completed [facility] .5 mL 00:00:00 [facility] Influenza Virus 2019-09-02 Completed [facility] .5 mL 00:00:00 [facility] Influenza Virus 2019-09-02 Completed [facility] .5 mL 00:00:00 [facility] Influenza Virus 2019-09-02 Completed [facility] .5 mL 00:00:00 [facility] Influenza Virus 2019-09-02 Completed [facility] .5 mL 00:00:00 [facility] Influenza Virus 2019-09-02 Completed [facility] .5 mL 00:00:00 [facility] Influenza Virus 2019-09-02 Completed [facility] .5 mL 00:00:00 [facility] Influenza Virus 2019-09-02 Completed [facility] .5 mL 00:00:00 [facility] Influenza Virus 2019-09-02 Completed [facility] .5 mL 00:00:00 [facility] Influenza Virus 2019-09-02 Completed [facility] .5 mL 00:00:00 [facility] Influenza Virus 2019-09-02 Completed [facility] .5 mL 00:00:00 [facility] Influenza Virus 2019-09-02 Completed [facility] .5 mL 00:00:00 [facility] Influenza Virus 2019-09-02 Completed [facility] .5 mL 00:00:00 [facility] Influenza Virus 2019-09-02 Completed [facility] .5 mL 00:00:00 [facility] Influenza Virus 2019-09-02 Completed [facility] .5 mL 00:00:00 [facility] Influenza Virus 2019-09-02 Completed [facility] .5 mL 00:00:00 [facility] Influenza Virus 2019-09-02 Completed [facility] .5 mL 00:00:00 [facility] Influenza Virus 2019-09-02 Completed [facility] .5 mL 00:00:00 [facility] Influenza Virus 2019-09-02 Completed [facility] .5 mL 00:00:00 [facility] Influenza Virus 2019-09-02 Completed [facility] .5 mL 00:00:00 [facility] Influenza Virus 2019-09-02 Completed [facility] .5 mL 00:00:00 [facility] Influenza Virus 2019-09-02 Completed [facility] .5 mL 00:00:00 [facility] Influenza Virus 2019-09-02 Completed [facility] .5 mL 00:00:00 [facility] Influenza Virus 2019-09-02 Completed [facility] .5 mL 00:00:00 [facility] Influenza Virus 2019-09-02 Completed [facility] .5 mL 00:00:00 [facility] Influenza Virus 2019-09-02 Completed [facility] .5 mL 00:00:00 [facility] Influenza Virus 2019-09-02 Completed [facility] .5 mL 00:00:00 [facility] Influenza Virus 2019-09-02 Completed [facility] .5 mL 00:00:00 [facility] Influenza Virus 2019-09-02 Completed [facility] .5 mL 00:00:00 [facility] Influenza Virus 2019-09-02 Completed [facility] .5 mL 00:00:00 [facility] Influenza Virus 2019-09-02 Completed [facility] .5 mL 00:00:00 [facility] Influenza Virus 2019-09-02 Completed [facility] .5 mL 00:00:00 [facility] Influenza Virus 2019-09-02 Completed [facility] .5 mL 00:00:00 [facility] Influenza Virus 2019-09-02 Completed [facility] .5 mL 00:00:00 [facility] Influenza Virus 2019-09-02 Completed [facility] .5 mL 00:00:00 [facility] Influenza Virus 2019-09-02 Completed [facility] .5 mL 00:00:00 [facility] Influenza Virus 2019-09-02 Completed [facility] .5 mL 00:00:00 [facility] Influenza Virus 2019-09-02 Completed [facility] .5 mL 00:00:00 [facility] Influenza Virus 2019-09-02 Completed [facility] .5 mL 00:00:00 [facility] Influenza Virus 2017-10-04 Completed [facility] 00:[facility]00 [facility] Influenza Virus 2017-10-04 Completed [facility] 00:00:00 [facility] Influenza Virus 2017-10-04 Completed [facility] 00:00:00 [facility] Influenza Virus 2017-10-04 Completed [facility] 00:00:00 [facility] Influenza Virus 2017-10-04 Completed [facility] 00:00:00 [facility] Influenza Virus 2017-10-04 Completed [facility] 00:00:00 [facility] Influenza Virus 2017-10-04 Completed [facility] 00:00:00 [facility] Influenza Virus 2017-10-04 Completed [facility] 00:00:00 [facility] Influenza Virus 2017-10-04 Completed [facility] 00:00:00 [facility] Influenza Virus 2017-10-04 Completed [facility] 00:00:00 [facility] Influenza Virus 2017-10-04 Completed [facility] 00:00:00 [facility] Influenza Virus 2017-10-04 Completed [facility] 00:00:00 [facility] Influenza Virus 2017-10-04 Completed [facility] 00:00:00 [facility] Influenza Virus 2017-10-04 Completed [facility] 00:00:00 [facility] Influenza Virus 2017-10-04 Completed [facility] 00:00:00 [facility] Influenza Virus 2017-10-04 Completed [facility] 00:00:00 [facility] Influenza Virus 2017-10-04 Completed [facility] 00:00:00 [facility] Influenza Virus 2017-10-04 Completed [facility] 00:00:00 [facility] Influenza Virus 2017-10-04 Completed [facility] 00:00:00 [facility] Influenza Virus 2017-10-04 Completed [facility] 00:00:00 [facility] Influenza Virus 2017-10-04 Completed [facility] 00:00:00 [facility] Influenza Virus 2017-10-04 Completed [facility] 00:00:00 [facility] Influenza Virus 2017-10-04 Completed [facility] 00:00:00 [facility] Influenza Virus 2017-10-04 Completed [facility] 00:00:00 [facility] Influenza Virus 2017-10-04 Completed [facility] 00:00:00 [facility] Influenza Virus 2017-10-04 Completed [facility] 00:00:00 [facility] Influenza Virus 2017-10-04 Completed [facility] 00:00:00 [facility] Influenza Virus 2017-10-04 Completed [facility] 00:00:00 [facility] Influenza Virus 2017-10-04 Completed [facility] 00:00:00 [facility] Influenza Virus 2017-10-04 Completed [facility] 00:00:00 [facility] Influenza Virus 2017-10-04 Completed [facility] 00:00:00 [facility] Influenza Virus 2017-10-04 Completed [facility] 00:00:00 [facility] Influenza Virus 2017-10-04 Completed [facility] 00:00:00 [facility] Influenza Virus 2017-10-04 Completed [facility] 00:00:00 [facility] Influenza Virus 2017-10-04 Completed [facility] 00:00:00 [facility] Influenza Virus 2017-10-04 Completed [facility] 00:00:00 [facility] Influenza Virus 2017-10-04 Completed [facility] 00:00:00 [facility] Influenza Virus 2017-10-04 Completed [facility] 00:00:00 [facility] Influenza Virus 2017-10-04 Completed [facility] 00:00:00 [facility] Influenza Virus 2017-10-04 Completed [facility] 00:00:00 [facility] Influenza Virus 2017-10-04 Completed [facility] 00:00:00 [facility] Influenza Virus 2017-10-04 Completed [facility] 00:00:00 [facility] Influenza Virus 2017-10-04 Completed [facility] 00:00:00 [facility] Influenza Virus 2017-10-04 Completed [facility] 00:00:00 [facility] Influenza Virus 2017-10-04 Completed [facility] 00:00:00 [facility] Influenza Virus 2017-10-04 Completed [facility] 00:00:00 [facility] Influenza Virus 2017-10-04 Completed [facility] 00:00:00 [facility] Influenza Virus 2017-10-04 Completed [facility] 00:00:00 [facility] Influenza Virus 2017-10-04 Completed [facility] 00:00:00 [facility] Influenza Virus 2017-10-04 Completed [facility] 00:00:00 [facility] Influenza Virus 2017-10-04 Completed [facility] 00:00:00 [facility] Influenza Virus 2017-10-04 Completed [facility] 00:00:00 [facility] Influenza Virus 2017-10-04 Completed [facility] 00:00:00 [facility] Influenza Virus 2017-10-04 Completed [facility] 00:00:00 [facility] Influenza Virus 2017-10-04 Completed [facility] 00:00:00 [facility] Influenza Virus 2017-10-04 Completed [facility] 00:00:00 [facility] Influenza Virus 2017-10-04 Completed [facility] 00:00:00 [facility] Influenza Virus 2017-10-04 Completed [facility] 00:00:00 [facility] Influenza Virus 2017-10-04 Completed [facility] 00:00:00 [facility] Influenza Virus 2017-10-04 Completed [facility] 00:00:00 [facility] Influenza Virus 2017-10-04 Completed [facility] 00:00:00 [facility] Influenza Virus 2017-10-04 Completed [facility] 00:00:00 [facility] Influenza Virus 2017-10-04 Completed [facility] 00:00:00 [facility] Influenza Virus 2017-10-04 Completed [facility] 00:00:00 [facility] Influenza Virus 2017-10-04 Completed [facility] 00:00:00 [facility] Influenza Virus 2017-10-04 Completed [facility] 00:00:00 [facility] Td 2010-10-22 Completed [facility] 00:00:00 [facility] Td 2010-10-22 Completed [facility] 00:00:00 [facility] Td 2010-10-22 Completed [facility] 00:00:00 [facility] Td 2010-10-22 Completed [facility] 00:00:00 [facility] Td 2010-10-22 Completed [facility] 00:00:00 [facility] Td 2010-10-22 Completed [facility] 00:00:00 [facility] Td 2010-10-22 Completed [facility] 00:00:00 [facility] Td 2010-10-22 Completed [facility] 00:00:00 [facility] Td 2010-10-22 Completed [facility] 00:00:00 [facility] Td 2010-10-22 Completed [facility] 00:00:00 [facility] Td 2010-10-22 Completed [facility] 00:00:00 [facility] Td 2010-10-22 Completed [facility] 00:00:00 [facility] Td 2010-10-22 Completed [facility] 00:00:00 [facility] Td 2010-10-22 Completed [facility] 00:00:00 [facility] Td 2010-10-22 Completed [facility] 00:00:00 [facility] Td 2010-10-22 Completed [facility] 00:00:00 [facility] Td 2010-10-22 Completed [facility] 00:00:00 [facility] Td 2010-10-22 Completed [facility] 00:00:00 [facility] Td 2010-10-22 Completed [facility] 00:00:00 [facility] Td 2010-10-22 Completed [facility] 00:00:00 [facility] Td 2010-10-22 Completed [facility] 00:00:00 [facility] Td 2010-10-22 Completed [facility] 00:00:00 [facility] Td 2010-10-22 Completed [facility] 00:00:00 [facility] Td 2010-10-22 Completed [facility] 00:00:00 [facility] Td 2010-10-22 Completed [facility] 00:00:00 [facility] Td 2010-10-22 Completed [facility] 00:00:00 [facility] Td 2010-10-22 Completed [facility] 00:00:00 [facility] Td 2010-10-22 Completed [facility] 00:00:00 [facility] Td 2010-10-22 Completed [facility] 00:00:00 [facility] Td 2010-10-22 Completed [facility] 00:00:00 [facility] Td 2010-10-22 Completed [facility] 00:00:00 [facility] Td 2010-10-22 Completed [facility] 00:00:00 [facility] Td 2010-10-22 Completed [facility] 00:00:00 [facility] Td 2010-10-22 Completed [facility] 00:00:00 [facility] Td 2010-10-22 Completed [facility] 00:00:00 [facility] Td 2010-10-22 Completed [facility] 00:00:00 [facility] Td 2010-10-22 Completed [facility] 00:00:00 [facility] Td 2010-10-22 Completed [facility] 00:00:00 [facility] Td 2010-10-22 Completed [facility] 00:00:00 [facility] Td 2010-10-22 Completed [facility] 00:00:00 [facility] Td 2010-10-22 Completed [facility] 00:00:00 [facility] Td 2010-10-22 Completed [facility] 00:00:00 [facility] Td 2010-10-22 Completed [facility] 00:00:00 [facility] Td 2010-10-22 Completed [facility] 00:00:00 [facility] Td 2010-10-22 Completed [facility] 00:00:00 [facility] Td 2010-10-22 Completed [facility] 00:00:00 [facility] Td 2010-10-22 Completed [facility] 00:00:00 [facility] Td 2010-10-22 Completed [facility] 00:00:00 [facility] Td 2010-10-22 Completed [facility] 00:00:00 [facility] Td 2010-10-22 Completed [facility] 00:00:00 [facility] Td 2010-10-22 Completed [facility] 00:00:00 [facility] Td 2010-10-22 Completed [facility] 00:00:00 [facility] Td 2010-10-22 Completed [facility] 00:00:00 [facility] Td 2010-10-22 Completed [facility] 00:00:00 [facility] Td 2010-10-22 Completed [facility] 00:00:00 [facility] Td 2010-10-22 Completed [facility] 00:00:00 [facility] Td 2010-10-22 Completed [facility] 00:00:00 [facility] Td 2010-10-22 Completed [facility] 00:00:00 [facility] Td 2010-10-22 Completed [facility] 00:00:00 [facility] Td 2010-10-22 Completed [facility] 00:00:00 [facility] Td 2010-10-22 Completed [facility] 00:00:00 [facility] Td 2010-10-22 Completed [facility] 00:00:00 [facility] Td 2010-10-22 Completed [facility] 00:00:00 [facility] Td 2010-10-22 Completed [facility] 00:00:00 [facility] Td 2010-10-22 Completed [facility] 00:00:00 [facility] Td 2010-10-22 Completed [facility] 00:00:00 [facility] Vital Signs Vital Name Observation Time Observation Value Comments Source Systolic blood 2021-01-29 22:47:00 118 mm[Hg] [facility]iver [facility] of pressure [facility] Diastolic blood 2021-01-29 22:47:00 68 mm[Hg] Unive rsity of pressure [facility] Heart rate 2021-01-29 22:47:00 109 /min [facility] Body temperature 2021-01-29 22:47:00 37.06 Neelam [facility] Respiratory rate 2021-01-29 22:47:00 18 /min [facility] Body height 2021-01-29 22:47:00 165.1 cm [facility] Body weight 2021-01-29 22:47:00 132.45 kg [facility] BMI 2021-01-29 22:47:00 48.59 kg/m2 [facility] Oxygen saturation in 2021-01-29 22:47:00 98 /min [facility] of Arterial blood by [facility] Pulse oximetry Branch Systolic blood 2020-06-24 13:33:00 107 mm[Hg] Univer sity of pressure [facility] Diastolic blood 2020-06-24 13:33:00 73 mm[Hg] Unive rsity of pressure [facility] Heart rate 2020-06-24 13:33:00 85 /min [facility] Body height 2020-06-24 13:33:00 165.1 cm [facility] Body weight 2020-06-24 13:33:00 123.378 kg [facility] BMI 2020-06-24 13:33:00 45.26 kg/m2 [facility] Systolic blood 2020-05-06 19:56:00 117 mm[Hg] [facility] of pressure [facility] Diastolic blood 2020-05-06 19:56:00 76 mm[Hg] Unive rsity of pressure [facility] Heart rate 2020-05-06 19:56:00 95 /min [facility] Body temperature 2020-05-06 19:56:00 37.22 Neelam [facility] Respiratory rate 2020-05-06 19:56:00 16 /min [facility] Body height 2020-05-06 19:56:00 165.1 cm [facility] Body weight 2020-05-06 19:56:[address] [facility] BMI 2020-05-06 19:56:00 42.68 kg/m2 [facility] Systolic blood 2020-04-23 13:59:00 113 mm[Hg] Univer sity of pressure [facility] Diastolic blood 2020-04-23 13:59:00 77 mm[Hg] Un[facility] rsity of pressure [facility] Heart rate 2020-04-23 13:59:00 97 /min [facility] Body temperature 2020-04-23 13:59:00 37.61 Neelam [facility] of [facility] Respiratory rate 2020-04-23 13:59:00 12 /min [facility] of [facility] Body height 2020-04-23 13:59:[address] [facility] Body weight 2020-04-23 13:59:[address] [facility] BMI 2020-04-23 13:59:00 41.97 kg/m2 [facility] Body temperature 2020-03-10 16:45:00 36.[address] [facility] Respiratory rate 2020-03-10 16:45:00 18 /min [facility] ers[facility] of [facility] Systolic blood 2020-03-10 09:37:00 96 mm[Hg] Un[facility] pressure [facility] Diastolic blood 2020-03-10 09:37:00 57 mm[Hg] [facility]ive rsity of pressure [facility] Heart rate 2020-03-10 09:37:00 89 /min [facility] Oxygen saturation in 2020-03-10 09:37:00 100 /min [facility] of Arterial blood by [facility] Pulse oximetry Branch Body height 2020-03-09 11:09:[address] [facility] Body weight 2020-03-09 11:09:[address] [facility] BMI 2020-03-09 11:09:00 42.60 kg/m2 [facility] Systolic blood 2020-03-08 13:22:00 111 mm[Hg] Un[facility] pressure [facility] Diastolic blood 2020-03-08 13:22:00 66 mm[Hg] Unive rsity of pressure [facility] Heart rate 2020-03-08 13:22:00 87 /min [facility] Body temperature 2020-03-08 13:22:00 36.72 Neelam [facility] Respiratory rate 2020-03-08 13:22:00 18 /min [facility] Body height 2020-03-08 13:22:00 165.1 cm [facility] Body weight 2020-03-08 13:22:00 117.754 kg [facility] BMI 2020-03-08 13:22:00 43.20 kg/m2 [facility] Systolic blood 2020-03-01 13:23:00 98 mm[Hg] [facility]ity of pressure [facility] Diastolic blood 2020-03-01 13:23:00 55 mm[Hg] Unive rsity of pressure [facility] Heart rate 2020-03-01 13:23:00 90 /min [facility] Body temperature 2020-03-01 13:23:00 36.33 Neelam [facility] Respiratory rate 2020-03-01 13:23:00 18 /min [facility] Body height 2020-03-01 13:23:00 165.1 cm [facility] Body weight 2020-03-01 13:23:00 117.754 kg [facility] BMI 2020-03-01 13:23:00 43.20 kg/m2 [facility] Systolic blood 2020-02-28 18:55:00 97 mm[Hg] [facility]iver [facility]ity of pressure [facility] Diastolic blood 2020-02-28 18:55:00 68 mm[Hg] Unive rsity of pressure [facility] Heart rate 2020-02-28 18:55:00 95 /min [facility] Body temperature 2020-02-28 18:55:00 36.94 Neelam [facility] Respiratory rate 2020-02-28 18:55:00 18 /min [facility] Body height 2020-02-28 18:55:00 165.1 cm [facility] Body weight 2020-02-28 18:55:00 116.121 kg [facility] BMI 2020-02-28 18:55:00 42.60 kg/m2 [facility] Systolic blood 2020-02-23 19:19:00 110 mm[Hg] Univer sity of pressure [facility] Diastolic blood 2020-02-23 19:19:00 70 mm[Hg] Unive rsity of pressure [facility] Heart rate 2020-02-23 19:19:00 100 /min [facility]i ty of [facility] Body temperature 2020-02-23 19:19:00 36.78 Neelam [facility] Respiratory rate 2020-02-23 19:19:00 18 /min [facility] Body height 2020-02-23 19:19:00 165.[address] [facility] Body weight 2020-02-23 19:19:00 116[address] [facility] BMI 2020-02-23 19:19:00 42.77 kg/m2 [facility] ty [facility] Systolic blood 2020-01-23 19:00:00 120 mm[Hg] Univer sity of pressure [facility] Diastolic blood 2020-01-23 19:00:00 75 mm[Hg] Unive rsity of pressure [facility] Heart rate 2020-01-23 19:00:00 92 /min [facility]i ty of [facility] Oxygen saturation in 2020-01-23 19:00:00 98 /min University Arterial blood by [facility] Pulse oximetry [place] Body temperature 2020-01-23 18:18:00 36.72 Neelam [facility] [address] Respiratory rate 2020-01-23 18:18:00 18 /min [facility] Body height 2020-01-23 18:18:00 165.[address] [facility] Body weight 2020-01-23 18:18:[address] [facility] BMI 2020-01-23 18:18:00 41.77 kg/m2 [facility] Systolic blood 2019-12-29 15:45:00 105 mm[Hg] Univer sity of pressure [facility] Diastolic blood 2019-12-29 15:45:00 66 mm[Hg] Unive rsity of pressure [facility] Heart rate 2019-12-29 15:45:00 97 /min [facility] ty of [facility] Body temperature 2019-12-29 15:45:00 36.56 Neelam [facility] [address] Respiratory rate 2019-12-29 15:45:00 18 /min [facility] Body height 2019-12-29 15:45:00 165[address] [facility] Body weight 2019-12-29 15:45:00 114.306 kg [facility] BMI 2019-12-29 15:45:00 41.93 kg/m2 [facility] ty [facility] Systolic blood 2019-11-29 01:49:00 122 mm[Hg] Univer sity of pressure [facility] Diastolic blood 2019-11-29 01:49:00 69 mm[Hg] Unive rsity of pressure [facility] Heart rate 2019-11-29 01:49:00 78 /min [facility]i ty of [facility] Body temperature 2019-11-29 01:49:00 [address] Neelam [address] [facility] Respiratory rate 2019-11-29 01:49:00 18 /min Univ [facility] Body height 2019-11-29 01:49:00 165[address] [facility] Body weight 2019-11-29 01:49:00 114.216 kg Universi [facility] of [facility] BMI 2019-11-29 01:49:00 41.90 kg/m2 [facility]i ty of [facility] Oxygen saturation in 2019-11-29 01:49:00 100 /min University of Arterial blood by [facility] Pulse oximetry Branch Systolic blood 2019-11-27 15:11:00 117 mm[Hg] Univer sity of pressure [facility] Diastolic blood 2019-11-27 15:11:00 73 mm[Hg] Unive rsity of pressure [facility] Heart rate 2019-11-27 15:11:00 103 /min [facility] ty [facility] Body temperature 2019-11-27 15:11:00 36.39 Neelam [facility] [address] Respiratory rate 2019-11-27 15:11:00 18 /min Univ [facility]ity of [facility] Body height 2019-11-27 15:11:00 165[address] [facility] Body weight 2019-11-27 15:11:00 112.946 kg [facility] of [facility] BMI 2019-11-27 15:11:00 41.44 kg/m2 [facility] Systolic blood 2019-11-17 22:32:00 117 mm[Hg] [facility] Diastolic blood 2019-11-17 22:32:00 69 mm[Hg] Unive rsity of pressure [facility] Heart rate 2019-11-17 22:32:00 92 /min Universi ty of [facility] Body temperature 2019-11-17 22:32:00 36.33 Neelam Univ [facility] Respiratory rate 2019-11-17 22:32:00 18 /min Univ [facility] Body height 2019-11-17 22:32:00 165.1 cm Universi [facility] of [facility] Body weight 2019-11-17 22:32:00 114.76 kg Universi [facility] BMI 2019-11-17 22:32:00 42.10 kg/m2 Univers[facility] Systolic blood 2019-07-10 14:31:00 117 mm[Hg] Univer sity of pressure [facility] Diastolic blood 2019-07-10 14:31:00 83 mm[Hg] Unive rsity of pressure [facility] Heart rate 2019-07-10 14:31:00 96 /min Universi [facility] of [facility] Body temperature 2019-07-10 14:31:00 36.83 Neelam [facility] Respiratory rate 2019-07-10 14:31:00 18 /min Univ [facility]ity of [facility] Body height 2019-07-10 14:31:00 165.1 cm [facility] Body weight 2019-07-10 14:31:00 117.595 kg [facility] BMI 2019-07-10 14:31:00 43.14 kg/m2 [facility] Procedures Procedure Date / Time Performing Clinician Source Performed SARS-COV-2 COVID-19 2021-09-19 20:59:04 Doctor Unassigned, No [facility] V[facility]INE,0.3ML,IM Name [facility] (PFIZER) POCT GRP A STREP 2021-01-29 23:00:00 Yoel Collins [facility] ([facility]) [facility] XR WRIST <3 VW RIGHT 2020-06-24 13:39:45 Thanh Parker [facility] CONSENT FOR 2020-05-06 05:01:00 Doctor Unassigned, No Univer [facility] CONTRACEPTION [facility] POCT TEST 2020-04-23 00:00:[address] [facility] CBC WITH DIFFERENTIAL 2020-03-10 09:42:00 [facility]ia [facility] ARTERIAL CORD GAS 2020-03-09 14:10:00 Kia Mi [facility] SECTION 2020-03-09 12:45:00 Kia Mi [facility] POCT GLUCOSE (AUTOMATED) 2020-03-09 11:37:[address] [facility] RHO (D) IMMUNE GLOBULIN 2020-03-08 14:48:00 Kia Mi [facility] CONSENT/REFUSAL FOR 2020-03-08 14:16:41 Doctor Unassigned, No Un iversFormerly [facility] DIAGNOSIS AND TREATMENT [facility] ASSIGNMENT OF BENEFITS 2020-03-08 14:16:27 Doctor Unassigned, No [facility] POCT URINALYSIS W/O 2020-03-08 00:00:00 Kia Mi [facility] SPECIFIC [facility] PHYSICIAN ORDERS 2020-03-01 05:01:00 Doctor Unassigned, No [facility] URINALYSIS W/O 2020-03-01 00:00:00 Luis Prado [facility] SPECIFIC [facility] DSU PRE-OP 2020-02-23 05:01:00 Doctor Unassigned, No Univer [facility] POCT URINALYSIS W/O 2020-02-23 00:00:00 Kia Mi [facility] SECOND AND THIRD 2020-01-26 14:10:00 Kia Mi [facility] TRIMESTER ULTRASOUND [facility] CONSENT/REFUSAL FOR 2020-01-23 17:59:10 Doctor Unassigned, No Un iversFormerly [facility] DIAGNOSIS AND TREATMENT [facility] ASSIGNMENT OF BENEFITS 2020-01-23 17:58:59 Doctor Unassigned, No [facility] SECOND AND THIRD 2019-12-29 15:05:00 Kia Mi [facility] TRIMESTER ULTRASOUND [facility] PATIENT QUESTIONNAIRE 2019-12-29 05:01:00 Doctor Unassigned, No [facility] ASSIGNMENT OF BENEFITS 2019 16:16:54 Doctor Unassigned, No [facility] NOTICE OF PRIVACY 2019-11-29 01:05:38 Doctor Unassigned, No [facility] [place] CONSENT/REFUSAL FOR 2019-11-29 01:05:27 Doctor Unassigned, [facility] [place] L&D VISIT 2019-11-28 06:01:00 Doctor Unassigned, No [facility] (NON-DELIVERED) [facility] POCT URINALYSIS W/O 2019-11-27 00:00:00 Luis Prado [facility] POCT URINALYSIS W/O 2019-11-17 00:00:00 Kia Mi [facility] AUTHORIZATION FOR 2019-10-05 06:01:00 Doctor Unassigned, No [facility] RELEASE [facility] POCT TEST 2019-07-10 14:23:00 Laurel Benoit [facility] POCT URINALYSIS W/O 2019-07-10 14:23:[address] [facility] ASSIGNMENT OF BENEFITS 2019-07-10 14:07:05 Doctor Unassigned, No [facility] CONSENT/REFUSAL FOR 2019-06-12 22:43:53 Doctor Unassigned, No [facility] DIAGNOSIS AND TREATMENT [facility] Encounters Start End Encounter Admission Attending Care Care Encounter Source Date/Time Date/Time Type Type Clinicians Facility Department ID 2021-08-18 Outpatient P KIA MI [facility] PILAR [id number] Univers 20:27:52 ity [facility] 2021-08-18 Outpatient P KIA MI [facility] PILAR [id number] Univers 17:11:40 [facility] 2021-08-18 Outpatient P [facility] PILAR [id number] Univers 16:57[facility] 2021-09-19 2021-09-19 Imm/Inj Nurse, Adc Pob Immunization [facility] 1.2.840.114 [id number] Univers 13:46:22 13:46:31 Visit Manolo Chadd Hernán NICE [id number] .10 ity [facility] [id number] [phone] Wy richard BEYER [address] BU[address]ING 2021-09-19 2021-09-19 Outpatient R MANOLO [facility] [id number] Univers 13:40:00 13:40:00 CHADD ity [facility] 2021-06-22 2021-06-22 Outpatient R [facility] [id number] Univers 09:00:00 09:00:00 [id number] ity [facility] 2021-06-15 2021-06-15 Letter JESSICA Rendon 1.2.840.114 [id number] Univers 00:00:00 00:00:00 (Out) Xuan TREVINO [id number] it y of [facility] [id number] Agapito as [phone] [address] 2021-06-14 2021-06-14 Laboratory Only, Ang Db Test [facility] 1.2.8 40.114 [id number] Univers 09:49:04 10:04:04 Only Jhoan García [facility] [id number] ity [facility] [id number] Agapito as Lyle?Blea [phone] Wy dichua ey [address] 2021-06-14 2021-06-14 Outpatient R [facility] [id number] Univers 09:45:00 09:45:00 [id number] ity [facility] 2021-06-14 2021-06-14 Outpatient R RICKY [facility] [id number] Univers 09:45:00 09:45:00 JHOAN pitts [facility] 2021-06-03 2021-06-03 Outpatient R [facility] [id number] Univers 18:20:00 18:20:00 [id number] ity [facility] 2021-05-24 2021-05-24 Outpatient R NICKI [facility] [id number] Univers 09:30:00 09:30:00 KASSIE [id number] ity o [facility] 2021-05-24 2021-05-24 Outpatient R AKINSIPE, [facility] [id number] Univers 09:30:00 09:30:00 KASSIE ity o [facility] 2021-04-29 2021-04-29 Outpatient R AKINSIPE, [facility] [id number] Univers 08:15:00 08:15:00 KASSIE [id number] ity o [facility] 2021-04-29 2021-04-29 Outpatient R AKINSIPE, [facility] [id number] Univers 08:15:00 08:15:00 KASSIE [facility] 2021-04-27 2021-04-27 Outpatient PATRICK CARVAJAL, SLE SLE [id number] [facility] 00:00:00 00:00:00 SAMER 2021-02-25 2021-02-25 Outpatient R AKINSIPE, [facility] [id number] Univers 13:45:00 13:45:00 KASSIE [id number] y o [facility] 2021-02-25 2021-02-25 Outpatient R AKINSIPE, [facility] [id number] Univers 13:45:00 13:45:00 KASSIE [facility] 2021-01-29 2021-01-29 Urgent Provider, [facility] Urgent Care [facility] 1.2.840.114 [id number] Univers 17:41:34 18:01:34 Alexx [facility] [id number] [facility] [id number] Agapito as Professio [phone] Wy dical [facility] [address] One 2021-01-29 2021-01-29 Outpatient R [facility] [id number] Univers 17:40:00 17:40:00 [id number] [facility] 2021-01-29 2021-01-29 [facility] [id number] Univers 17:40:00 17:40:00 [facility] 2021-01-13 2021-01-13 Outpatient R STEPHANIE, [facility] [id number] Univers 08:10:00 08:10:00 [facility] 2020-12-23 2020-12-23 Outpatient [facility] [id number] Univers 10:30:00 10:30:00 [facility] 2020-10-29 2020-10-29 Outpatient PATRICK CARVAJAL SLENatalio [facility] [id number] [facility] 00:00:00 00:00:00 SAMER 2020-10-27 2020-10-27 Laboratory Only, Clc Bls Test [facility] 1.2. 840.114 [id number] Univers 09:15:04 09:30:04 Only Kelli [facility] [id number] ity of [place] [id number] [facility] [phone] [address] Office Building 2020-10-27 2020-10-27 Outpatient R [facility] [id number] Univers 09:15:00 09:15:00 [id number] [facility] 2020-10-27 2020-10-27 Outpatient R STRONG, [facility] [id number] Univers 09:15:00 09:15:00 KELLI [facility] 2020-08-18 2020-08-18 Outpatient R ROSA, [facility] [id number] Univers 12:00:00 12:00:00 RODRI [id number] ity o [facility] 2020-08-18 2020-08-18 Outpatient R ROSA, [facility] [id number] Univers 12:00:00 12:00:00 [place] [facility] 2020-07-14 2020-07-14 Outpatient R ROSA, [facility] [id number] Univers 12:00:00 12:00:00 RODRI [id number] ity o [facility] 2020-07-14 2020-07-14 Outpatient R ROSA, [facility] [id number] Univers 12:00:00 12:00:00 RODRI [place] [facility] 2020-07-05 2020-07-05 Telephone Roberto [facility] 1.2.840.114 [id number] Univers 00:00:00 00:00:00 [facility] [id number] it y of Surgical [id number] Agapito as Specialti [phone] Me dical es 198 [facility] 2020-06-24 2020-06-24 Hospital [facility] 1.2.840.114 [id number] Univers 08:39:44 23:59:00 Encounter Thanh [facility] [id number] ity of Surgical [id number] Agapito as Specialti [phone] Me dical es 809 [facility] 2020-06-24 2020-06-24 Office [facility] 1.2.840.114 [id number] Univers 08:17:49 09:02:46 Visit Thanh [facility] [id number] it y of Surgical 4.2.7.2.686 Agapito as Specialti [phone] Me dical es 198 [facility] 2020-06-24 2020-06-24 [facility] [id number] Univers 08:15:00 08:15:00 THANH [facility] 2020-06-24 2020-06-24 Outpatient R KEITH [facility] [id number] Univers 08:15:00 08:15:00 THANH [facility] 2020-05-25 2020-05-25 Outpatient R DHRUV, [facility] [id number] Univers 08:30:00 08:30:00 LUIS [facility] 2020-05-25 2020-05-25 Outpatient R DHRUV [facility] [id number] Univers 08:30:00 08:30:00 LUIS [facility] 2020-05-20 2020-05-20 Outpatient R NICKI, [facility] [id number] Univers 08:15:00 08:15:00 KASSIE [id number] hong o [facility] 2020-05-20 2020-05-20 Outpatient R AKINSIPE, [facility] [id number] Univers 08:15:00 08:15:00 KASSIE pitts o [facility] 2020-05-06 2020-05-06 [facility] 1.2.752.226 [id number] Univers 14:35:05 15:05:05 Visit [facility] LICENSED WEIGHER [id number] ity of [facility] [id number] Agapito as MATERNAL [phone] [facility] ical & [address] 2020-05-06 2020-05-06 Outpatient R AKINSIPE, [facility] [id number] Univers 14:30:00 14:30:00 KASSIE [id number] ity o f [facility] 2020-05-06 2020-05-06 Outpatient R AKINSIPE, [facility] [id number] Univers 14:30:00 14:30:00 KASSIE ity o [facility] 2020-05-06 2020-05-06 Orders Doctor JESSICA 1.2.840.114 [id number] Univers 00:00:00 00:00:00 Only Unassigned, URIEL [id number] ity of [place] [facility] 4.2.7.2.686 Agapito as [phone] [address] 2020-04-23 2020-04-23 Office Akinsipe, [facility] 1.2.849.569 [id number] Univers 08:48:21 09:33:58 Visit [facility] LICENSED WEIGHER [id number] ity of [facility] [id number] Agapito as MATERNAL [phone] [facility] & CHILD [address] [place] [address] 2020-04-23 2020-04-23 Outpatient R AKINSIPE, [facility] [id number] Univers 08:45:00 08:45:00 KASSIE ity o f [facility] 2020-04-23 2020-04-23 Outpatient R AKINSIPE, [facility] [id number] Univers 08:45:00 08:45:00 KASSIE ity o f [facility] 2020-04-22 2020-04-22 Outpatient R AKINSIPE, [facility] [id number] Univers 08:00:00 08:00:00 KASSIE ity o f [facility] 2020-04-22 2020-04-22 Outpatient R AKINSIPE, [facility] [id number] Univers 08:00:00 08:00:00 KASSIE ity o f [facility] 2020-04-21 2020-04-21 Outpatient R KAYCEE [facility] [id number] Univers 08:45:00 08:45:00 LAUREL ity [facility] 2020-04-12 2020-04-12 Outpatient R HIWOT KIA [facility] [id number] Univers 08:30:00 08:30:00 [id number] ity [facility] 2020-04-12 2020-04-12 Outpatient R HIWOT [facility] [id number] Univers 08:30:00 08:30:00 ity [facility] 2020-04-12 2020-04-12 Outpatient R HIWOT [facility] [id number] Univers 08:30:00 08:30:00 ity [facility] 2020-04-10 2020-04-10 [facility] 1..[id number] Univers 00:00:00 00:00:00 Luis Nice 350.1.13.10 i ty of [place].7.2.[place] [phone] Wy dical [address] 2020-03-19 2020-03-19 Outpatient R DHRUV [facility] [id number] Univers 11:30:00 11:30:00 LUIS carin [facility] 2020-03-19 2020-03-19 Telemedici [facility] 1..840.114 [id number] Univers 07:57:37 08:12:37 ne Visit Luis Nice 350.1.13.10 [place]y of [place].2.[place] [phone] Wy dical nal [address] [place] [address] 2020-03-12 2020-03-12 Refill Kia Mi [facility] 1..[id number] Univers 00:00:00 00:00:00 Andrew Nice 350.1.13.10 i ty of [place].2.[place] [phone] [facility] [address] 2020-03-12 2020-03-12 Telephone Kia Mi [facility] ..840.114 [id number] Univers 00:00:00 00:00:00 Cam Holcomb 350.1.13.10 i ty of [place].7.2.[place] [phone] Wy dical nal [address] [facility] 2020-03-11 2020-03-11 Telephone Kia Mi [facility] 1.2.840.114 [id number] Univers 00:00:00 00:00:00 Cam Holcomb 350.1.13.10 i ty of [place].2.[place] [phone] Wy dical nal [address] [facility] 2020-03-09 2020-03-10 [facility] Kia Mi [facility] 1.2.840.114 [id number] Univers 06:04:00 16:35:00 Encounter Cam Holcomb 350.1.13.10 ity of [place] 4[place].2.686 [place] [phone] [facility] [address] 2020-03-08 2020-03-08 Outpatient R [facility] [id number] Univers 10:00:00 10:00:00 [id number] ity [facility] 2020-03-08 2020-03-08 [facility] [id number] Univers 10:00:00 10:00:00 KELLI ity [facility] 2020-03-08 2020-03-08 Laboratory Only, Adc Test [facility] 1.2.840. 114 [id number] Univers 09:14:44 09:29:44 Only Kia Mi Andrew [place]aton 350.1.13.10 ity of [place].2.[place] [phone] Wy dical nal [address] [facility] 2020-03-08 2020-03-08 Routine Luis Prado [facility] 1.2.840.11 [id number] Univers 08:12:50 08:51:41 Kia Mi Holcomb 350.1.13.10 ity of Visit [place] 4.2.7.2.686 [place] [phone] Wy dical nal [address] [facility] 2020-03-08 2020-03-08 Outpatient R KIA MI [facility] [id number] Univers 08:15:00 08:15:[address] [facility] 2020-03-08 2020-03-08 Orders Doctor JESSICA 1.2.840.114 [id number] Univers 00:00:00 00:00:00 Only Unassigned, URIEL 350.1.13.10 ity of [place] [facility] 4.2.7.2.686 Agapito as [phone] [address] 2020-03-07 2020-03-07 Outpatient R [facility] [id number] Univers 10:00:00 10:00:00 [id number] ity [facility] 2020-03-01 2020-03-01 Routine [facility] 1.2.883.980 [id number] Univers 08:05:58 08:47:52 Luis Nice 350.1.13.10 ity of Visit [place].2.[place] [phone] Wy dic[address] 2020-03-01 2020-03-01 [facility] [id number] Univers 08:45:00 08:45:00 LUIS [id number] ity [facility] 2020-03-01 2020-03-01 [facility] [id number] Univers 08:45:00 08:45:00 LUIS ity [facility] 2020-03-01 2020-03-01 [facility] [id number] Univers 08:45:00 08:45:00 [facility] 2020-03-01 2020-03-01 Orders Doctor LOPEZ 1.2.840.114 [id number] Univers 00:00:00 00:00:00 Only Unassigned, URIEL 350.1.13.10 ity of [place] [facility] 4.2.7.2.686 Agapito as [phone] [address] 2020-02-28 2020-02-28 [facility] Ana Rosa English [facility] 1.2.840. 114 [id number] Univers 13:41:00 15:10:00 Encounter Kia Mi 350.1.13.10 ity of [place] [phone] [facility] [address] 2020-02-23 2020-02-23 Auto Detailer 2, [facility] [place] 1.2.840.114 [id number] Univers 14:46:46 15:01:46 Visit Adriel Rodriguez Adrien 350.1.13.10 ity of [place].7.2.[place] [phone] Wy dical nal [address] [facility] 2020-02-23 2020-02-23 Routine Kia Mi [place] 1.2.696.342 [id number] Univers 13:49:45 14:33:18 Cam Adrien 350.1.13.10 ity of Visit [place] 4[place]2.7.2.[address] [facility] [phone] Wy dical nal [address] [facility] 2020-02-23 2020-02-23 Auto Detailer Ultrasound, [facility] 1.2 .840.114 [id number] Univers 09:28:24 09:58:24 Visit Adriel Rodriguez LICENSED WEIGHER 350.1.13.10 ity of [facility] 4.2.7.2.686 Agapito as MATERNAL [phone] Med ical & CHILD [address] [place] [address] 2020-02-23 2020-02-23 Outpatient R [facility] [id number] Univers 09:30:00 09:30:[id number] [facility] 2020-02-23 2020-02-23 Outpatient R [facility] [id number] Univers 09:30:00 09:30:[address] [facility] 2020-02-23 2020-02-23 Orders Doctor JESSICA 1.2.840.114 [id number] Univers 00:00:00 00:00:00 Only Unassigned, URIEL 350.1.13.10 ity of [place] [facility] 4.2.7.2.686 Agapito as [phone] [facility] [address] 2020-02-23 2020-02-23 Patient Kia Mi [facility] 1.2.988.997 [id number] Univers 00:00:00 00:00:00 Secure Msg Andrew Nice 350.1.13.10 [place] [phone] Wy dical nal [address] [place] [address] 2020-02-09 2020-02-09 Outpatient R DHRUV [facility] [id number] Univers 14:00:00 14:00:00 LUIS [id number] ity [facility] 2020-02-09 2020-02-09 Outpatient R DHRUV [facility] [id number] Univers 14:00:00 14:00:00 LUIS ity [facility] 2020-02-09 2020-02-09 [facility] 1.2.840.114 [id number] Univers 08:31:04 08:46:04 ne Visit Luis Nice 350.1.13.10 [place] of [place] [phone] Wy dical nal [address] [place] [address] 2020-02-09 2020-02-09 Patient Doctor [facility] 1.2.840.114 [id number] Univers 00:00:00 00:00:00 Secure Msg Unassigned, Holcomb 350.1.13.10 it[place] [phone] Wy dical nal [address] [place] [address] 2020-02-09 2020-02-09 Patient Doctor [facility] 1.2.840.114 [id number] Univers 00:00:00 00:00:00 Secure Msg Unassigned, Holcomb 350.1.13.10 ity [place] [phone] Wy dical nal [address] [place] [address] 2020-01-29 2020-01-29 Case Dhruv [facility] 1.2.727.668 [id number] Univers 00:00:00 00:00:00 Management Luis Nice 350.1.13.10 [place] of [place] [phone] Wy dical nal [address] [place] [address] 2020-01-27 2020-01-27 Patient Hiwot Kia [facility] 1.2.836.864 [id number] Univers 00:00:00 00:00:00 Secure Msg Andrew Nice 350.1.13.10 it[place] of [place] [phone] Wy dical [address] 2020-01-26 2020-01-26 [facility] 1.2.840.114 [id number] Univers 08:49:33 16:33:41 ne Visit Andrew Nice 350.1.13.10 it[place] of [place] [phone] Wy dic[address] 2020-01-26 2020-01-26 Outpatient R HIWOT [facility] [id number] [id number]-20 Univers 15:45:00 15:45:[id number] [facility] 2020-01-26 2020-01-26 Outpatient R HIWOT [facility] [id number] Univers 15:45:00 15:45:[address] [facility] 2020-01-26 2020-01-26 Auto Detailer Ultrasound, [facility] 1.2 .840.114 [id number] Univers 08:51:51 09:16:05 Visit Kia Mi LICENSED WEIGHER 350.1.13.10 ity of Ngozi Krause [facility] 4.2.7.2.686 [place] MATERNAL [phone] Med ical & CHILD [address] [place] [address] 2020-01-23 2020-01-23 [facility] 1.2.840.114 [id number] Univers 12:59:00 14:05:00 Encounter Amy Nice 350.1.13.10 [place] [phone] [address] 2020-01-23 2020-01-23 Telephone MiLeathaen [facility] 1.2.840.114 [id number] Univers 00:00:00 00:00:00 Andrew Nice 350.1.13.10 i ty of [place] [phone] Wy dical nal [address] [place] [address] 2020-01-12 2020-01-12 Telemedici Dhruv [facility] 1.2.840.114 [id number] Univers 08:28:05 09:39:31 ne Visit Luis Nice 350.1.13.10 it[place] of [place] [phone] [address] 2020-01-12 2020-01-12 Outpatient R DHRUV [facility] [id number] [id number] Univers 08:15:00 08:15:00 LUIS [id number] ity [facility] 2020-01-12 2020-01-12 Outpatient R DHRUV [facility] [id number] Univers 08:15:00 08:15:00 LUIS [facility] 2019-12-31 2019-12-31 Telephone Dhruv [facility] 1.2.840.114 [id number] Univers 00:00:00 00:00:00 Luis Nice 350.1.13.10 i [place] of [place] [phone] [address] 2019-12-29 2019-12-29 Routine Luis Prado [facility] 1.2.840.11 [id number] Univers 10:23:10 11:47:32 Kia Mi 350.1.13.10 ity of [place] [phone] [address] 2019-12-29 2019-12-29 Auto Detailer Ultrasound, [facility] 1.2 .840.114 [id number] Univers 09:31:46 10:13:36 Visit Adriel Rodriguez LICENSED WEIGHER 350.1.13.10 ity of [place] 4.2.7.2.686 [place] as MATERNAL [phone] Med ical & CHILD [address] [place] [address] 2019-12-29 2019-12-29 Outpatient P [facility] [id number] Univers 09:30:00 09:30:00 ity [facility] 2019-12-29 2019-12-29 Orders Doctor LOPEZ 1.2.840.114 [id number] Univers 00:00:00 00:00:00 Only Unassigned, URIEL 350.1.13.10 ity of [place] [facility] 4.2.7.2.686 [place] as [phone] [address] 2019 2019 Outpatient R [facility] [id number] -[id number] Univers 12:00:00 12:00:00 [id number] ity [facility] 2019 2019 [facility] [id number] Univers 12:00:00 12:00:00 LUIS ity [facility] 2019 2019 Auto Detailer Candie, Adc Lab Main [facility] 1.2.8 40.114 [id number] Univers 10:19:04 10:34:04 Visit Luis Prado 350.1.13.10 it[place] of [place] [phone] Wy dical nal [address] [facility] 2019 2019 Orders Doctor JESSICA 1.2.840.114 [id number] Univers 00:00:00 00:00:00 Only Unassigned, URIEL 350.1.13.10 ity of [place] [facility] 4.2.7.2.686 [place] as [phone] [address] 2019 2019 Case [facility] 1.2.796.363 [id number] Univers 00:00:00 00:00:00 Management Luis Nice 350.1.13.10 it[place] of [place] [phone] Wy dical nal [address] [facility] 2019 2019 Telephone Kia Mi [facility] 1.2.840.114 [id number] Univers 00:00:00 00:00:00 [facility] 350.1.13.10 it y of [place] 4.2.7.2.686 [place] Professio [phone] Wy dical nal [address] [employer] 2019-12-02 2019-12-02 Telephone Kia Mi [facility] 1.2.840.114 [id number] Univers 00:00:00 00:00:00 Andrew Nice 350.1.13.10 i ty of [place] [phone] Wy dicut nal [address] [place] [address] 2019-11-28 2019-11-28 Hospital [facility] 1.2.840.114 [id number] Univers 19:41:00 20:40:00 Encounter Carrillo Nice 350.1.13.10 ity of [place] [phone] [facility] [address] 2019-11-28 2019-11-28 [facility] 1.2.840.114 [id number] Univers 00:00:00 00:00:00 Luis Nice 350.1.13.10 i ty of [place] [phone] Wy dicut nal [address] [place] [address] 2019-11-27 2019-11-27 Routine [facility] 1.2.150.329 [id number] Univers 08:49:11 11:44:23 Luis Nice 350.1.13.10 ity of [place] [phone] [facility] nal [address] [place] [address] 2019-11-20 2019-11-20 Case [facility] 1.2.272.973 [id number] Univers 00:00:00 00:00:00 Management Luis Nice 350.1.13.10 it[place] of [place] [phone] Wy dical nal [address] [place] [address] 2019-11-18 2019-11-18 [facility] 1.2.840.114 [id number] Univers 00:00:00 00:00:00 Luis Nice 350.1.13.10 i ty of [place] [phone] Wy dicut nal [address] [place] [address] 2019-11-17 2019-11-17 Routine Kia Mi [facility] 1.2.751.836 [id number] Univers 16:16:23 17:02:50 Cam Holcomb 350.1.13.10 ity of [place] [phone] Wy dical [facility] 2019-10-05 2019-10-05 Orders Doctor JESSICA 1.2.840.114 [id number] Univers 00:00:00 00:00:00 Only Unassigned, URIEL 350.1.13.10 ity of [place] [facility]OSPITAL 4.2.7.2.686 [place] as [phone] [address] 2019-07-11 2019-07-11 Telephone [facility] 1.2.840.114 [id number] Univers 00:00:00 00:00:00 Laurel Leon LICENSED WEIGHER 350.1.13.10 it y of [facility] 4.2.7.2.686 [place]apito as MATERNAL [phone] Med ical & CHILD [address] [place] [address] 2019-07-10 2019-07-10 Initial [facility] 1.2.937.739 [id number] [facility] 09:17:39 10:10:46 Laurel Leon LICENSED WEIGHER 350.1.13.10 i ty of Visit [facility] 4.2.7.2.686 [place]apito as MATERNAL [phone] Med ica & CHILD [address] [place] [address] 2019-07-10 2019-07-10 Orders Doctor JESSICA 1.2.840.114 [id number] Univers 00:00:00 00:00:00 Only Unassigned, URIEL 350.1.13.10 ity of [place] [facility] 4.2.7.2.686 [place] as [phone] [address] 2019-06-12 2019-06-12 Orders Doctor JESSICA 1.2.840.114 [id number] Univers 00:00:00 00:00:00 Only Unassigned, URIEL 350.1.13.10 ity of [place] [facility]ITAL 4.2.7.2.686 [place] as [phone] [address] Results Test Description Test Time Test Comments Results Result Comments Source POCT GRP A STREP (MOLECULAR) 2021-01-29 23:00:00 Test Item Value Reference Range Interpretation Comme nts POCT GP A STREP (test code = 97759-4) negative Negative - Negat seda Lab Interpretation (test code = 01807-5) Normal [facility] [id number] 14:04:00 Test Item Value Reference Range Interpretation Comments POCT PREG (test code = 1605) Negative On board controls acceptable with C Yes Line (test code = 3574) POCT PREG LOT # (test code = 3575) POCT PREG TEST DATE (test code = 3576) [facility] [id number] 14:04:00 Test Item Value Reference Range Interpretation Comments POCT PREG (test code = 1605) Negative On board controls acceptable with C Yes Line (test code = 3574) POCT PREG LOT # (test code = 3575) POCT PREG TEST DATE (test code = 3576) [facility] [id number] 14:04:00 Test Item Value Reference Range Interpretation Comments POCT PREG (test code = 1605) Negative On board controls acceptable with C Yes Line (test code = 3574) POCT PREG LOT # (test code = 3575) POCT PREG TEST DATE (test code = 3576) [facility] WITH [id number] 10:17:00 Test Item Value Reference Range Interpretation Comments WBC (test code = See_Comment H [Automated 3290-2) message] The sy stem which generated this result transmitted reference range : 4.30 - 11.10 10*3/?L. The reference range was not used to interpret this result as normal/abnormal . RBC (test code = See_Comment L [Automated 279-8) message] The sy stem which generated this result transmitted reference range : 3.93 - 5.25 10*6/?L. The reference range was not used to interpret this result as normal/abnormal . HGB (test code = 10.0 g/dL 11.6-15 L 718-7) HCT (test code = 30.7 % 35.7-45.2 L 4544-3) MCV (test code = 88.7 fL 80.6-95.5 787-2) MCH (test code = 28.9 pg 25.9-32.8 785-6) MCHC (test code = 32.6 g/dL 31.6-35.1 786-4) RDW-SD (test code = 43.6 fL 39-49.9 44587-0) RDW-CV (test code = 13.6 % 12-15.5 788-0) PLT (test code = See_Comment [Automated 777-3) message] The sy stem which generated this result transmitted reference range : 166 - 358 10*3/ ?L. The reference r naga was not used to interpret this result as normal/abnormal . MPV (test code = 10.9 fL 9.5-12.9 41469-1) NRBC/100 WBC (test See_Comment [Automat ed code = 6967431933) message] The system which generated this result transmitted reference range : 0.0 - 10.0 /100 WBCs. The refer ence range was not u sed to interpret th is result as normal/abnormal . NRBC x10^3 (test code <0.01 See_Comment [Auto mated = 6335013032) message] The s ystem which generated this result transmitted reference range : 10*3/?L. The reference range was not used to interpret this result as normal/abnormal . GRAN MAT (NEUT) % 71.8 % (test code = 770-8) IMM GRAN % (test code 0.40 % = 4443067531) LYMPH % (test code = 18.0 % 736-9) MONO % (test code = 7.7 % 5905-5) EOS % (test code = 1.8 % 713-8) BASO % (test code = 0.3 % 706-2) GRAN MAT x10^3(ANC) 8.15 10*3/uL 1.88-7.09 H (test code = 1573078402) IMM GRAN x10^3 (test 0.04 10*3/uL 0-0.06 code = 3702364971) LYMPH x10^3 (test code 2.04 10*3/uL 1.32-3.29 = 731-0) MONO x10^3 (test code 0.87 10*3/uL 0.33-0.92 = 742-7) EOS x10^3 (test code = 0.20 10*3/uL 0.03-0.39 711-2) BASO x10^3 (test code 0.03 10*3/uL 0.01-0.07 = 704-7) Lab Interpretation Abnormal (test code = 22751-4) [facility]) IMMUNE [id number] 19:41:45 Test Item Value Reference Range Interpretation Comments RHIG CANDIDATE? No- see comment Patient i s not a (test code = candidate for R hIg- 5055) Patient is Rh Positive.Perfor med at [facility] Laboratory Services - [facility] Blood [address] [place] [id number] Free: [phone] A No. [phone] [facility] PointeArterial Cord [id number] 14:21:00 Test Item Value Reference Range Interpretation Comments BASE EXCESS, CORD (test mEq/L code = 2790461288) AC PH, CORD (BEAKER) 7.18-7.38 (test code = 7690947176) PC02, CORD (test code = See_Comment [Au tomated message] 9383136416) The system FLENS generated this result transmitted ref erence range: 32 - 66 mmHg. The reference r naga was not used to interpret this result as normal/abnor mal. PO2, CORD (test code = See_Comment H [Aut omated message] 9139312733) The system [employer]ENS generated this result transmitted ref erence range: 10 - 30 mmHg. The reference r naga was not used to interpret this result as normal/abnor mal. BICARBONATE, CORD (test See_Comment [Au tomated message] code = 0130334905) The syste m which generated this result transmitted ref erence range: 17 - 27 mEq/L. The reference r naga was not used to interpret this result as normal/abnor mal. Lab Interpretation (test Abnormal code = 57226-3) [facility] GLUCOSE (AUTOMATED)2020-03-09 11:41:00 Test Item Value Reference Range Interpretation Comments POCT GLU (test code = 86 mg/dL 70-110 Notifi ed Provider [id number]) Lab Interpretation (test Normal code = 59992-7) [facility] URINALYSIS W/O SPECIFIC [id number] 13:24:00 Test Item Value Reference Range Interpretation Comments POCT PH U (test code = 3254) n/a 5-8 POCT U LEUK EST (test code = 3263) n/a Negative - Negative POCT U NIT (test code = 3262) n/a Negative - Negative POCT U PROT (test code = 3259) neg Negative - Negative POCT U GLU (test code = 3256) neg Negative - Negative POCT U KETONE (test code = 3258) n/a Negative - Negative POCT U BLD (test code = 3257) n/a Negative - Negative Lab Interpretation (test code = Normal 24415-1) [facility] URINALYSIS W/O SPECIFIC [id number] 13:24:00 Test Item Value Reference Range Interpretation Comments POCT PH U (test code = 3254) n/a 5-8 POCT U LEUK EST (test code = 3263) n/a Negative - Negative POCT U NIT (test code = 3262) n/a Negative - Negative POCT U PROT (test code = 3259) neg Negative - Negative POCT U GLU (test code = 3256) neg Negative - Negative POCT U KETONE (test code = 3258) n/a Negative - Negative POCT U BLD (test code = 3257) n/a Negative - Negative [facility] URINALYSIS W/O SPECIFIC [id number] 19:20:00 Test Item Value Reference Range Interpretation Comments POCT PH U (test code = 3254) n/a 5-8 POCT U LEUK EST (test code = 3263) n/a Negative - Negative POCT U NIT (test code = 3262) n/a Negative - Negative POCT U PROT (test code = 3259) neg Negative - Negative POCT U GLU (test code = 3256) neg Negative - Negative POCT U KETONE (test code = 3258) n/a Negative - Negative POCT U BLD (test code = 3257) n/a Negative - Negative Lab Interpretation (test code = Normal 02513-3) [facility] URINALYSIS W/O SPECIFIC [id number] 15:16:00 Test Item Value Reference Range Interpretation Comments POCT PH U (test code = 3254) 5 mg/dl 5-8 POCT U LEUK EST (test code = Negative Negative - Negative 3263) POCT U NIT (test code = 3262) Negative Negative - Negative POCT U PROT (test code = 3259) Trace Negative - Negative POCT U GLU (test code = 3256) Negative Negative - Negative POCT U KETONE (test code = 3258) Negative Negative - Negative POCT U BLD (test code = 3257) 5+ Negative - Negative [facility] W/O SPECIFIC [id number] 15:16:00 Test Item Value Reference Range Interpretation Comments POCT PH U (test code = 3254) 5 mg/dl 5-8 POCT U LEUK EST (test code = Negative Negative - Negative 3263) POCT U NIT (test code = 3262) Negative Negative - Negative POCT U PROT (test code = 3259) Trace Negative - Negative POCT U GLU (test code = 3256) Negative Negative - Negative POCT U KETONE (test code = 3258) Negative Negative - Negative POCT U BLD (test code = 3257) 5+ Negative - [facility] [id number] 22:39:00 Test Item Value Reference Range Interpretation Comments POCT PH U (test code = 3254) 7 mg/dl 5-8 POCT U LEUK EST (test code = Negative Negative - Negative 3263) POCT U NIT (test code = 3262) Negative Negative - Negative POCT U PROT (test code = 3259) Negative Negative - Negative POCT U GLU (test code = 3256) Negative Negative - Negative POCT U KETONE (test code = 3258) Negative Negative - Negative POCT U BLD (test code = 3257) 2+ Negative - Negative [facility] SPECIFIC [id number] 14:24:00 Test Item Value Reference Range Interpretation Comments POCT PH U (test code = 3254) 5 mg/dl 5-8 POCT U LEUK EST (test code = 1+ Negative - Negative 3263) POCT U NIT (test code = 3262) pos Negative - Negative POCT U PROT (test code = 3259) neg Negative - Negative POCT U GLU (test code = 3256) neg Negative - Negative POCT U KETONE (test code = 3258) neg Negative - Negative POCT U BLD (test code = 3257) Negative - Negative [facility] [id number] 14:23:00 Test Item Value Reference Range Interpretation Comments POCT PREG (test code = 1605) Positive On board controls acceptable with C Yes Line (test code = 3574) POCT PREG LOT # (test code = 3575) POCT PREG TEST DATE (test code = 3576) [facility]
--- NOTE | 2021-09-20 17:23 | ER ---
Nurse's Notes [facility] Name: Diane Chávez Age: 25 yrs Sex: Female : 1995 Arrival Date: 09/20/2021 Time: 16:42 Bed Waiting Private MD: Harsh Nesbitt E Diagnosis: Presentation: 09/20 17:19 Chief complaint: Patient states: I got my covid booster yesterday, since 0900 this ld1 morning I have thrown up 15 times. I have really bad diarrhea. I have a bunch of red dots all over my face that I woke up with. Coronavirus screen: At this time, the client does not indicate any symptoms associated with coronavirus-19. Ebola Screen: No symptoms or risks identified at this time. 17:19 Method Of Arrival: Ambulatory ld1 Assessment: 17:22 Reassessment: Pt left. Did not want to wait. ld1 Vital Signs: 17:22 BP 118 / 78; Pulse 118; Resp 18; Temp 97.4(TE); Pulse Ox 99% on R/A; Weight 136.08 kg; ld1 Height 5 ft. 6 in. (167.64 cm); 17:22 Body Mass Index 48.42 (136.08 kg, 167.64 cm) ld1 ED Course: 16:42 Patient arrived in ED. am2 16:42 Harsh Nesbitt MD is Private Physician. am2 Administered Medications: No medications were administered Outcome: 17:23 Patient left the ED. ld1 Signatures: Saray Sadler am2 Marquita Luis, RN RN ld1
[2021-09-20 17:26] VITALS: BP 118/78; TEMP 97.4; O2SAT 99
== END 2021-09-20 17:23 | disposition left against medical advice (07) ==
LOC: ER 16:32
DX: Z53.21 Procedure and treatment not carried out due to patient leaving prior to being seen by health care provider (principal)
CPT/HCPCS: 99281